=== PATIENT | male | born 1935 | race Caucasian/White ===

== ENCOUNTER 2018-12-26 11:45 | Observation (INO) | payer MEDICARE, OTHER, SELFPAY ==
[2018-12-10 08:43] VITALS: BMI 28.7
[2018-12-26] VITALS (10 sets, daily range): BP systolic 105–142; BP diastolic 54–68; PULSE 55–68; RESP 12–22; TEMP 36.6–36.9; O2SAT 93–98; BMI 29.1; BMI 29.0
--- NOTE | 2018-12-26 12:05 | RAD_ITS ---
STUDY: X-RAY CHEST REASON FOR EXAM: Male, 83 years old. Chest pain. TECHNIQUE: Single AP portable view of the chest. COMPARISON: 06/02/2015. FINDINGS: There again is mild stranding consistent with scarring in the right lower lung. No new infiltrate is seen. There is no demonstrated pleural abnormality. There is borderline cardiomegaly. Normal mediastinum and ang. Normal visualized pulmonary arteries. There is atherosclerotic tortuosity of the aortic arch and descending thoracic aorta. There are diffuse degenerative changes of the visualized thoracic spine. There is degenerative osteoarthritis of the bilateral shoulders. There is no demonstrated abnormality of the visualized soft tissue structures of the upper abdomen. RAD/Chest 1 View (Portable) IMPRESSION: Mild scarring in the right lower lung. No active pulmonary disease. Electronically Signed: Ac Ortiz MD at 12:40 EDT Tel , Service support ,
--- NOTE | 2018-12-26 12:09 | EKG12_ITS ---
Test Reason : CP Blood Pressure : / mmHG Vent. Rate : 066 BPM Atrial Rate : 066 BPM P-R Int : 202 ms QRS Dur : 134 ms QT Int : 426 ms P-R-T Axes : 037 -28 028 degrees QTc Int : 446 ms Normal sinus rhythm Right bundle branch block Inferior infarct (cited on or before 21-AUG-2013), age undetermined Abnormal ECG Confirmed by BART JUNE, FILI ([id number]), editorial specialist MORGAN VELÁSQUEZ ([id number]) on 12/29/2018 1:19:01 PM Referred By: Silvana Godoy Confirmed By:FILI ARRIAGA MD
[2018-12-26 12:17] LABS: Absolute Lymphocyte Count 10.46 X10^3/uL (0.83-4.51); Absolute Neutrophil Count 4.5 X10^3/uL (2.0-7.7); Basophil# 0.08 X10^3/uL; Basophil% 0.5 % (0-1); Eosinophil# 0.31 X10^3/uL; Eosinophils% 1.9 % (0-5); Hematocrit 47.4 % (40-54); Hemoglobin 15.9 g/dL (13.0-16.5); Lymphocyte # 10.46 X10^3/ul (4.0); Lymphocyte % 65.6 % (19-41); Mean Corp Hgb Conc 33.5 g/dL (32-36); Mean Corpuscular Hgb 30.9 pg (27.0-32.0); Mean Platelet Vol. 8.9 fl (6.2-12.0); Monocyte% 3.8 % (0-10); NRBC Flagged by Analyzer 0 % (0-5); Neutrophil # 4.45 X10^3/uL (2.7-7.7); Neutrophil % 27.9 % (47-70); POSITIVE DIFFERENTIAL YES; POSITIVE MORPHOLOGY YES; Platelet Count 166 K/mm3 (150-450); RBC Distribution Width CV 13.6 % (11.6-14.6); RBC Distribution Width SD 46.2 fl (35.1-43.9); Red Blood Count 5.15 M/mm3 (4.6-6.2)
[2018-12-26 12:19] LABS: Differential Indicated SCAN CRITERIA MET
[2018-12-26] MEDS: Aspirin 81 MG TAB.CHEW 324 MG PO (12:29)
[2018-12-26 12:30] LABS: Anion Gap 5 (5-15); BUN 15 mg/dL (7-18); BUN/Creat Ratio 12.2 RATIO (10-20); Calcium,Total 8.9 mg/dL (8.5-10.1); Chloride 105 mmol/L (98-107); Creatinine, Serum 1.23 mg/dL (0.70-1.30); EST Glomerular Filtration Rate 60 mL/min (>60); Est Glom Filt Rate - Afr Amer 72 mL/min (>60); Estimated Creatinine Clearance 49.95 ml/min; Glucose 170 mg/dL (74-106); Potassium 3.7 mmol/L (3.5-5.1); Sodium Level 141 mmol/L (136-145)
[2018-12-26 12:36] LABS: Differential Comment SCANNED; Reactive Lymphocyte 2+
--- NOTE | 2018-12-26 12:54 | CT_ITS ---
STUDY: CTA CHEST REASON FOR EXAM: Male, 83 years old. Chest pain, shortness of breath and hypertension. RADIATION DOSAGE (If Supplied By Facility): CTDIvol = ( 11.53 ) mGy, DLP = ( 486.53 ) mGycm TECHNIQUE: The examination was performed with the intravenous administration of 100mL IV Isovue 370. Post-processing of the angiographic images was performed, with multiplanar reformation and 3D reconstruction. Individualized dose optimization techniques were used for this CT. COMPARISON: None. FINDINGS: Normal enhancement of the main pulmonary artery and right and left pulmonary arteries. Normal enhancement of the bilateral peripheral pulmonary arteries. There is no demonstrated pulmonary embolism. There is atherosclerotic tortuosity of the aortic arch and descending thoracic aorta. There is suboptimal enhancement of the thoracic aorta. There is no definite dissection. The heart is borderline in size. There is no evidence of pericardial effusion. There may be coronary calcifications. Normal mediastinum. Normal hilar regions. Normal visualized trachea and bronchi. The lungs are well expanded. There is mild hazy groundglass opacities/infiltrates particularly in the upper lobes. There are atelectatic changes in both lower lobes and right middle lobe. No focal infiltrate is seen. There are no pleural effusions. Normal chest wall structures. Normal osseous structures. There is a striations in the vertebral body of T5 likely due to hemangioma. The visualized portions of the upper abdomen demonstrate mild splenomegaly. CT/CTA Chest W/WO Contrast IMPRESSION: 1. No evidence of pulmonary embolism. 2. Atelectatic changes in both lower lungs. 3. Questionable mild hazy groundglass opacity/early infiltrates which may reflect early mild pulmonary edema. 4. No focal infiltrate is seen. 5. Mild splenomegaly. 6. Probable hemangioma at T5 vertebra. Electronically Signed: Ac Ortiz MD at 14:42 EDT Tel , Service support ,
--- NOTE | 2018-12-26 12:56 | ED.DCSUM_ITS ---
- ER Visit Summary Date of Service: 12/26/18 Chief Complaint: Chest pain History of Present Illness: The patient is a [address] Mckeon for he and the [facility] in [place]. He reports that approximately 2 hours ago he had the onset of a substernal chest pain at while at rest. It is an aching pain that was 8 out of 10 at worst and 6 out of 10 currently. Is worsened by nothing including exertion or breathing. Also relieved by nothing. He took nitro without relief. Does report that is associated with shortness of breath and burping. He denies any nausea, vomiting, or diaphoresis. Patient does have history of coronary artery disease. He has 3 stents. His last was placed in 2010. He is unsure if he has had a stress test since then. He denies any chest pain with exertion over the course the past month. However, he does report these been much more fatigued with exertion over the past 2 weeks. Physical Examination: Vitals: Stable. Afebrile. General: Well-nourished and well-developed. Head: Normocephalic atraumatic. Neck: Supple, no lymphadenopathy. No JVD. Nontender. Cardiovascular: Regular rate and rhythm. No murmurs. Respiratory: No respiratory distress. Clear to auscultation bilaterally. Abdominal: Soft, nontender, nondistended, normal bowel sounds. No guarding, rebound, or peritoneal signs. Back: Nontender. Extremities: Nontender, no edema. Skin: Normal color, no rash. Neurologic: Alert and oriented ?3. Cranial nerves II through XII are intact. Normal strength and sensation. Psych: Normal affect. Test Results: EKG is sinus at 66 with right bundle branch block. This is a new finding since his last EKG June 022015. Troponin is negative. Chem-7 shows a glucose of 170. CBC shows a white count of 16.0 with 20 segmented neutrophils and 66 lymphocytes. Clinical Impression(s) from Imaging Studies Chest X-Ray 12/26/18 12:05 IMPRESSION: Mild scarring in the right lower lung. No active pulmonary disease. Electronically Signed: Ac Ortiz MD at 12:40 EDT Tel , Service support , Chest CTA 12/26/18 12:54 IMPRESSION: 1. No evidence of pulmonary embolism. 2. Atelectatic changes in both lower lungs. 3. Questionable mild hazy groundglass opacity/early infiltrates which may reflect early mild pulmonary edema. 4. No focal infiltrate is seen. 5. Mild splenomegaly. 6. Probable hemangioma at T5 vertebra. Electronically Signed: Ac Ortiz MD at 14:42 EDT Tel , Service support , Emergency Department Course and Treatment: Patient was treated with aspirin p.o. He is resting comfortably. He denies any chest pain at this time. Treatment Plan: The patient was discussed with Dr. Godoy. He will be admitted to the hospital for further evaluation and treatment. Disposition: Admitted in improved condition. Impression: 1. Chest pain. 2. JUDIT score 5. 3. Mantle cell lymphoma. This note was generated with [employer] dictation software. It may contain incorrect words, spelling, and punctuation that were not noted in review of the chart prior to signing ED Disposition - Plan for ED Patient: Disposition: Acute Care Hospital [facility]
[2018-12-26] MEDS: MethylPREDNISolone 125 MG/2 ML Vial 60 MG IV (13:06)
[2018-12-26] MEDS: DiphenhydrAMINE 50 MG/ML Syringe IV (13:06)
[2018-12-26 13:10] LABS: D-Dimer Quantitative (DVT/PE) < 0.27 FEU/ug/m (0.27-0.49)
--- NOTE | 2018-12-26 15:53 | PCM.HP.STD ---
Problem List (1) Hyperlipidemia Status: Chronic (2) Atherosclerosis of coronary artery of [place] heart without angina pectoris Status: Chronic Comment: PCI-CRISS-OM1 05/2000; UHC-EOA-Ymhfww LAD w/ 2.5 x 18 mm and Mid-LAD w/ 2.5 x 30 mm [place] Stent 07/03/2010 (3) History of coronary artery stent placement Status: Resolved Comment: PCI-CRISS-OM1 05/2000; VFZ-FPL-Ejhhhm LAD w/ 2.5 x 18 mm and Mid-LAD w/ 2.5 x 30 mm [place] Stent 07/03/2010 (4) Essential (primary) hypertension Status: Chronic History of Present Illness Date of Admission: 12/26/18 Chief Complaint: Chest pain. The patient is a 83 year old M who presents to the emergency room due to chest pain. Patient states he was driving his car and developed sudden chest pain. He took a nitroglycerin without significant improvement in pain. Patient reports his symptoms feel similar to chest pain with prior stents. He denies pain radiation, diaphoresis, dizziness/lightheadedness or shortness of breath. Patient states he has had some belching today which he reports he also had before prior stents. Patient does note that over the past several weeks he has had increased shortness of breath with exertion. He states he has nitro at home and has not taken nitro in at least 10 years prior to today. Patient follows with Dr. Hess. He has a history of CAD with history of stents X3, hypertension, hyperlipidemia, Mantle cell lymphoma, GERD, BPH, asthma. Past Medical History Past Medical History (Chronic Problems): Chronic Problems (Last Reviewed 12/10/18 @ 10:00 by Raheem Hess MD) Hyperlipidemia (Chronic) Atherosclerosis of coronary artery of [place] heart without angina pectoris (Chronic) PCI-CRISS-OM1 05/2000; FFE-RTY-Oemhgr LAD w/ 2.5 x 18 mm and Mid-LAD w/ 2.5 x 30 mm [place] Stent 07/03/2010 Essential (primary) hypertension (Chronic) Medical History: Medical History (Last Reviewed 12/10/18 @ 10:00 by Raheem Hess MD) Hyperlipidemia (Chronic) E78.5 Atherosclerosis of coronary artery of [place] heart without angina pectoris (Chronic) I25.10 PCI-CRISS-OM1 05/2000; JWG-EPL-Oliypk LAD w/ 2.5 x 18 mm and Mid-LAD w/ 2.5 x 30 mm [place] Stent 07/03/2010 Essential (primary) hypertension (Chronic) I10 Asthma J45.909 BPH (benign prostatic hyperplasia) N40.0 GERD (gastroesophageal reflux disease) K21.9 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 Acute respiratory failure (Resolved) J96.00 Aspiration into lower respiratory tract (Resolved) T17.800A Allergies IV DYE Allergy (Uncoded 12/26/18 11:46) Hives Home Medications: Ambulatory Orders Medication Instructions Recorded Aspirin [Aspirin, Baby] 81 mg PO DAILY@0800 02/15/13 Fluticasone/Salmeterol [Advair 1 puff INHALATION BID 02/15/13 250/50 Mcg Diskus] Ramipril [Altace] 2.5 mg PO DAILY 02/15/13 Tamsulosin HCl [Flomax] 0.4 mg PO QHS 02/15/13 Multivit-Min/FA/Lycopen/Lutein 1 ea PO DAILY 06/02/15 [Centrum Silver Tablet] hydrochlorothiazide 25 mg tablet 25 mg PO QAM 12/10/17 atorvastatin 80 mg tablet 40 mg PO QHS tab 12/10/18 nitroglycerin 0.4 mg sublingual 0.4 mg SUBLINGUAL Q5-15M 12/10/18 tablet omeprazole 20 mg capsule,delayed 20 mg PO DAILY 12/10/18 release Surgical History: Surgical History (Last Reviewed 12/10/18 @ 10:00 by Raheem Hess MD) History of coronary artery stent placement (Resolved) Onset Date: 07/03/10 Z95.5 PCI-CRISS-OM1 05/2000; FYV-YST-Lojwao LAD w/ 2.5 x 18 mm and Mid-LAD w/ 2.5 x 30 mm [place] Stent 07/03/2010 History of cholecystectomy Z90.49 History of hemorrhoidectomy Z98.890 History of left heart catheterization Onset Date: 07/08/13 Z98.890 History of tonsillectomy Z90.89 Surgical History: angioplasty - three stents, - - Tonsillectomy, cholecystectomy, hemorrhoidectomy Psychiatric History: No pertinent psych hx Lives: Spouse/ Significant Other Smoking Status: Former smoker Alcohol: None Drugs: None - *Family History Maternal Family History: Family History (Last Reviewed 12/26/18 @ 15:58 by MARIPOSA Tijerina) Brother Myocardial infarction Sister Myocardial infarction Mother Heart disease Paternal Family History: Family History (Last Reviewed 12/26/18 @ 15:58 by MARIPOSA Tijerina) Brother Myocardial infarction Sister Myocardial infarction Mother Heart disease Review of Systems Constitutional: Denies: Chills, Fever, Weight Change HEENT: Denies: Head Aches, Sinus Congestion, Sinus Drainage Cardiovascular: Reports: Chest Pain. Denies: Edema, Light Headedness, Palpitations, Syncope Respiratory: Denies: Cough, Shortness of breath at rest, Sputum production Gastrointestinal: Denies: Abdominal Pain, Nausea, Vomiting Genitourinary: Denies: Dysuria Musculoskeletal: Denies: Joint Pain, Joint Tenderness Skin: Denies: Rash, Wounds Neurological: Denies: Numbness, Tingling, Focal weakness Psychiatric: Denies: Anxiety, Depression, Homicidal Ideations, Suicidal Ideations Hematologic/ Lymphatic: Denies: Easy Bruising, Easy Bleeding VTE Information - Inpt Only VTE Present on Admission: No VTE Mechan Device Prophylaxis: None VTE Pharm Prophylaxis ordered?: Yes - Physical Exam General: Alert, Oriented x3, Cooperative HEENT: Atraumatic, PERRLA, EOMI, Normocephalic Neck: Supple, No JVD, Negative Carotid Bruits Lungs: Clear to auscultation, Diminished Cardiovascular: Regular rate, Regular Rhythm, Normal S1, Normal S2, No murmurs Abdomen: Bowel Sounds Present, Soft, Non Tender, Non-Distended Extremities: No clubbing, No cyanosis, No edema, Capillary Refill Less than 3 Seconds Skin: No rashes, No breakdown Musculoskeletal: No Tenderness to Palpation of Joints or Extremities Neurological: Cranial nerves II-XII grossly intact, Neuro grossly intact Psych/Mental Status: Normal Affect, Appropriate Vital Signs Temp Pulse Resp BP Pulse Ox 98.5 F 55 L 22 H 116/54 L 98 12/26/18 11:46 12/26/18 14:19 12/26/18 14:19 12/26/18 14:19 12/26/18 14:19 Oxygen Delivery Method Room Air Weight: 214 lb 15.211 oz Body Mass Index (BMI) 29.1 Laboratory Tests Past 24 Hrs 12/26/18 12/26/18 12/26/18 11:45 11:45 11:45 WBC 16.0 H RBC 5.15 Hgb 15.9 Hct 47.4 MCV 92.0 MCH 30.9 MCHC 33.5 RDW Std Deviation 46.2 H RDW Coeff of Jack 13.6 Plt Count 166 MPV 8.9 Immature Gran % (Auto) 0.300 Neut % (Auto) 27.9 L Lymph % (Auto) 65.6 H [place] % (Auto) 3.8 Eos % (Auto) 1.9 Baso % (Auto) 0.5 Absolute Neuts (auto) 4.5 Absolute Lymphs (auto) 10.46 H Nucleated RBC % 0 Differential Comment SCANNED Reactive Lymphocytes 2+ D-Dimer Quant (PE/DVT) < 0.27 L Sodium 141 Potassium 3.7 Chloride 105 Carbon Dioxide 31.0 Anion Gap 5 BUN 15 Creatinine 1.23 Estim Creat Clear Calc 49.95 Est GFR (MDRD) Af Amer 72 Est GFR (MDRD) Non-Af 60 BUN/Creatinine Ratio 12.2 Glucose 170 H Calcium 8.9 Troponin I < 0.015 Assessment/Plan All Active Problems (Last Reviewed 12/10/18 @ 10:00 by Raheem Hess MD) History of coronary artery stent placement (Resolved 07/03/10) Acute respiratory failure (Resolved) Aspiration into lower respiratory tract (Resolved) 1. Chest pain with history of CAD status post stents-rule out ACS. EKG without acute ischemia, right bundle branch block. Trend enzymes. Repeat EKG in a.m. Continue aspirin, statin. Stress test on Friday. CTA without evidence of PE. 2. Abnormal CT of chest-CT of chest shows questionable mild hazy groundglass opacity. Recommend outpatient follow-up/repeat imaging. 3. Hypertension-stable, continue home hydrochlorothiazide, ramipril regimen. 4. Hyperlipidemia-continue statin. 5. Mantel cell lymphoma-continue outpatient follow-up. 6. GERD-continue omeprazole regimen. 7. BPH-continue Flomax regimen. 8. Asthma-no acute exacerbation. As needed albuterol aerosol. 9. Elevated glucose-possible stress response. No history of type 2 diabetes mellitus. Check hemoglobin A1c. DVT prophylaxis-Lovenox subcu This patient was seen by MARIPOSA Tijerina under the supervision of Dr. Godoy.
--- NOTE | 2018-12-26 16:33 | EKG12_ITS ---
Test Reason : CP Blood Pressure : / mmHG Vent. Rate : 056 BPM Atrial Rate : 056 BPM P-R Int : 206 ms QRS Dur : 124 ms QT Int : 430 ms P-R-T Axes : 051 -20 049 degrees QTc Int : 414 ms Sinus bradycardia Right bundle branch block Inferior infarct , age undetermined Abnormal ECG When compared with ECG of 26-DEC-2018 11:50, MANUAL COMPARISON REQUIRED, DATA IS UNCONFIRMED Confirmed by JESSICA OCONNOR ([id number]), business editor DANIS ELIZABETH ([id number]) on 01/04/2019 2:38:49 PM Referred By: Silvana Godoy Confirmed By:JESSICA OCONNOR
[2018-12-26 17:06] LABS: Hematocrit 48.3 % (40-54); Hemoglobin 16.3 g/dL (13.0-16.5); Mean Corp Hgb Conc 33.7 g/dL (32-36); Mean Corpuscular Hgb 30.8 pg (27.0-32.0); Mean Corpuscular Volume 91.1 fL (80-94); Mean Platelet Vol. 8.9 fl (6.2-12.0); Platelet Count 157 K/mm3 (150-450); RBC Distribution Width CV 13.6 % (11.6-14.6); RBC Distribution Width SD 45.6 fl (35.1-43.9); White Blood Count 13.5 K/mm3 (4.4-11.0)
[2018-12-26 17:18] LABS: BNP,B-Type NATRIURETIC PEPTIDE 12.3 pg/mL (0-100)
[2018-12-26 17:50] LABS: Hemoglobin A1c 5.8 % (4.2-6.3)
[2018-12-26] MEDS: Ipratropium/Albuterol Sulfate 3 ML AMPUL.NEB INHALATION (19:07)
[2018-12-26] MEDS: Atorvastatin Calcium 40 MG Tablet PO (22:04)
[2018-12-26] MEDS: Tamsulosin HCl 0.4 MG Capsule PO (22:04)
[2018-12-27] VITALS (14 sets, daily range): BP systolic 100–126; BP diastolic 50–62; PULSE 60–93; RESP 16–20; TEMP 36.6–37; O2SAT 90–94
--- NOTE | 2018-12-27 05:55 | EKG12_ITS ---
Test Reason : AM EKG Blood Pressure : / mmHG Vent. Rate : 063 BPM Atrial Rate : 063 BPM P-R Int : 202 ms QRS Dur : 130 ms QT Int : 440 ms P-R-T Axes : 050 -24 028 degrees QTc Int : 450 ms Normal sinus rhythm Right bundle branch block Inferior infarct , age undetermined Abnormal ECG When compared with ECG of 26-DEC-2018 15:52, MANUAL COMPARISON REQUIRED, DATA IS UNCONFIRMED Confirmed by JESSICA OCONNOR ([id number]), news editor DANIS ELIZABETH ([id number]) on 01/04/2019 2:39:41 PM Referred By: Silvana Godoy Confirmed By:JESSICA OCONNOR
[2018-12-27 06:12] LABS: Absolute Lymphocyte Count 10.82 X10^3/uL (0.83-4.51); Absolute Neutrophil Count 8.9 X10^3/uL (2.0-7.7); Basophil# 0.04 X10^3/uL; Basophil% 0.2 % (0-1); Eosinophil# 0.01 X10^3/uL; Hematocrit 44.4 % (40-54); Hemoglobin 15.3 g/dL (13.0-16.5); Lymphocyte # 10.82 X10^3/ul (4.0); Mean Corp Hgb Conc 34.5 g/dL (32-36); Mean Corpuscular Hgb 31.1 pg (27.0-32.0); Mean Corpuscular Volume 90.2 fL (80-94); Monocyte# 2.26 X10^3/uL; Monocyte% 10.2 % (0-10); NRBC Flagged by Analyzer 0 % (0-5); Neutrophil # 8.88 X10^3/uL (2.7-7.7); Neutrophil % 40.2 % (47-70); POSITIVE DIFFERENTIAL YES; POSITIVE MORPHOLOGY YES; Platelet Count 165 K/mm3 (150-450); RBC Distribution Width CV 13.4 % (11.6-14.6); Red Blood Count 4.92 M/mm3 (4.6-6.2); White Blood Count 22.1 K/mm3 (4.4-11.0)
[2018-12-27 06:25] LABS: Differential Indicated SCAN CRITERIA MET
[2018-12-27 06:30] LABS: Anion Gap 8 (5-15); BUN 21 mg/dL (7-18); BUN/Creat Ratio 17.6 RATIO (10-20); Calcium,Total 8.8 mg/dL (8.5-10.1); Chloride 106 mmol/L (98-107); Cholesterol 102 mg/dL (200); Creatinine, Serum 1.19 mg/dL (0.70-1.30); EST Glomerular Filtration Rate 62 mL/min (>60); Est Glom Filt Rate - Afr Amer 75 mL/min (>60); Estimated Creatinine Clearance 50.09 ml/min; Glucose 117 mg/dL (74-106); High Density Lipoprotein 38 mg/dL; Magnesium 2.1 mg/dL (1.6-2.6); Sodium Level 140 mmol/L (136-145); Triglycerides 85 mg/dL; Very Low Density Lipoprotein 17 mg/dL (5-40)
[2018-12-27] MEDS: Ipratropium/Albuterol Sulfate 3 ML AMPUL.NEB INHALATION ×3 (06:47→19:09)
[2018-12-27 06:59] LABS: Differential Comment SCANNED; Reactive Lymphocyte 3+
[2018-12-27] MEDS: hydroCHLOROthiazide 25 MG Tablet PO (08:07)
[2018-12-27] MEDS: Aspirin 81 MG TAB.CHEW PO (08:07)
[2018-12-27] MEDS: Ramipril 2.5 MG Capsule PO (08:07)
[2018-12-27] MEDS: Pantoprazole Sodium 20 MG Tablet PO ×2 (08:07)
[2018-12-27] MEDS: Enoxaparin 40 MG/0.4 ML Syringe SC (08:08)
--- NOTE | 2018-12-27 09:20 | PN_ITS ---
<Vilma Borden - Last Filed: 12/27/18 09:30> Patient Problems: Active and Suspected Problems (Last Reviewed 12/10/18 @ 10:00 by Raheem Hess MD) Chest pain (Acute) Subjective: Patient seen and examined. Denies chest pain overnight. No current complaints. - Physical Exam General: Alert, Oriented x3, Cooperative HEENT: Atraumatic, PERRLA, EOMI, Normocephalic Neck: Supple, No JVD, Negative Carotid Bruits Lungs: Clear to auscultation, Diminished Cardiovascular: Regular rate, Regular Rhythm, Normal S1, Normal S2, No murmurs Abdomen: Bowel Sounds Present, Soft, Non Tender, Non-Distended Extremities: No clubbing, No cyanosis, No edema, Capillary Refill Less than 3 Seconds Skin: No rashes, No breakdown Musculoskeletal: No Tenderness to Palpation of Joints or Extremities Neurological: Cranial nerves II-XII grossly intact, Neuro grossly intact Psych/Mental Status: Normal Affect, Appropriate Vital Signs Temp Pulse Resp BP Pulse Ox 98.2 F 93 16 126/62 H 92 12/27/18 08:05 12/27/18 08:05 12/27/18 08:05 12/27/18 08:05 12/27/18 08:05 Oxygen Delivery Method Room Air Weight: 208 lb 8.917 oz Body Mass Index (BMI) 29.0 Intake and Output for Last 24 Hours 12/25/18 12/26/18 12/27/18 23:59 23:59 23:59 Intake Total 360 / 360 Balance 360 / 360 Laboratory Tests Past 24 Hrs 12/26/18 12/26/18 12/26/18 11:45 11:45 11:45 WBC 16.0 H RBC 5.15 Hgb 15.9 Hct 47.4 MCV 92.0 MCH 30.9 MCHC 33.5 RDW Std Deviation 46.2 H RDW Coeff of Jack 13.6 Plt Count 166 MPV 8.9 Immature Gran % (Auto) 0.300 Neut % (Auto) 27.9 L Lymph % (Auto) 65.6 H [place] % (Auto) 3.8 Eos % (Auto) 1.9 Baso % (Auto) 0.5 Absolute Neuts (auto) 4.5 Absolute Lymphs (auto) 10.46 H Nucleated RBC % 0 Differential Comment SCANNED Diff Path Review Reactive Lymphocytes 2+ D-Dimer Quant (PE/DVT) < 0.27 L Sodium 141 Potassium 3.7 Chloride 105 Carbon Dioxide 31.0 Anion Gap 5 BUN 15 Creatinine 1.23 Estim Creat Clear Calc 49.95 Est GFR (MDRD) Af Amer 72 Est GFR (MDRD) Non-Af 60 BUN/Creatinine Ratio 12.2 Glucose 170 H Hemoglobin A1c Calcium 8.9 Magnesium Troponin I < 0.015 B-Natriuretic Peptide Triglycerides Cholesterol LDL Cholesterol VLDL Cholesterol HDL Cholesterol 12/26/18 12/26/18 12/26/18 11:45 16:54 16:54 WBC 13.5 H RBC 5.30 Hgb 16.3 Hct 48.3 MCV 91.1 MCH 30.8 MCHC 33.7 RDW Std Deviation 45.6 H RDW Coeff of Jack 13.6 Plt Count 157 MPV 8.9 Immature Gran % (Auto) Neut % (Auto) Lymph % (Auto) [place] % (Auto) Eos % (Auto) Baso % (Auto) Absolute Neuts (auto) Absolute Lymphs (auto) Nucleated RBC % Differential Comment Diff Path Review Reactive Lymphocytes D-Dimer Quant (PE/DVT) Sodium Potassium Chloride Carbon Dioxide Anion Gap BUN Creatinine Estim Creat Clear Calc Est GFR (MDRD) Af Amer Est GFR (MDRD) Non-Af BUN/Creatinine Ratio Glucose Hemoglobin A1c 5.8 Calcium Magnesium Troponin I B-Natriuretic Peptide 12.3 Triglycerides Cholesterol LDL Cholesterol VLDL Cholesterol HDL Cholesterol 12/26/18 12/26/18 12/27/18 16:54 19:53 05:49 WBC RBC Hgb Hct MCV MCH MCHC RDW Std Deviation RDW Coeff of Jack Plt Count MPV Immature Gran % (Auto) Neut % (Auto) Lymph % (Auto) [place] % (Auto) Eos % (Auto) Baso % (Auto) Absolute Neuts (auto) Absolute Lymphs (auto) Nucleated RBC % Differential Comment Diff Path Review Reactive Lymphocytes D-Dimer Quant (PE/DVT) Sodium 140 Potassium 4.0 Chloride 106 Carbon Dioxide 26.0 Anion Gap 8 BUN 21 H Creatinine 1.19 Estim Creat Clear Calc 50.09 Est GFR (MDRD) Af Amer 75 Est GFR (MDRD) Non-Af 62 BUN/Creatinine Ratio 17.6 Glucose 117 H Hemoglobin A1c Calcium 8.8 Magnesium 2.1 Troponin I < 0.015 < 0.015 B-Natriuretic Peptide Triglycerides 85 Cholesterol 102 LDL Cholesterol 47 VLDL Cholesterol 17 HDL Cholesterol 38 L 12/27/18 05:49 WBC 22.1 H RBC 4.92 Hgb 15.3 Hct 44.4 MCV 90.2 MCH 31.1 MCHC 34.5 RDW Std Deviation 44.0 H RDW Coeff of Jack 13.4 Plt Count 165 MPV 9.0 Immature Gran % (Auto) 0.400 Neut % (Auto) 40.2 L Lymph % (Auto) 49.0 H [place] % (Auto) 10.2 H Eos % (Auto) 0.0 Baso % (Auto) 0.2 Absolute Neuts (auto) 8.9 H Absolute Lymphs (auto) 10.82 H Nucleated RBC % 0 Differential Comment SCANNED Diff Path Review May foll Reactive Lymphocytes 3+ D-Dimer Quant (PE/DVT) Sodium Potassium Chloride Carbon Dioxide Anion Gap BUN Creatinine Estim Creat Clear Calc Est GFR (MDRD) Af Amer Est GFR (MDRD) Non-Af BUN/Creatinine Ratio Glucose Hemoglobin A1c Calcium Magnesium Troponin I B-Natriuretic Peptide Triglycerides Cholesterol LDL Cholesterol VLDL Cholesterol HDL Cholesterol Medical Necessity - Tobacco Use Smoking Status: Former smoker Assessment/Plan All Active Problems (Last Reviewed 12/10/18 @ 10:00 by Raheem Hess MD) Chest pain (Acute) History of coronary artery stent placement (Resolved 07/03/10) Acute respiratory failure (Resolved) Aspiration into lower respiratory tract (Resolved) 1. Chest pain with history of CAD status post stents-rule out ACS. EKG without acute ischemia, right bundle branch block. Troponin negative. Continue aspirin, statin. CTA without evidence of PE. Plan for stress test in a.m. Echocardiogram ordered as well given recent dyspnea on exertion. BNP normal. 2. Abnormal CT of chest-CT of chest shows questionable mild hazy groundglass opacity. Recommend outpatient follow-up/repeat imaging. 3. Hypertension-stable, continue home hydrochlorothiazide, ramipril regimen. 4. Hyperlipidemia-continue statin. 5. Mantel cell lymphoma-continue outpatient follow-up. 6. GERD-continue omeprazole regimen. 7. BPH-continue Flomax regimen. 8. Asthma-no acute exacerbation. As needed albuterol aerosol. 9. Elevated glucose-suspect stress response. Hemoglobin A1c 5.8%. DVT prophylaxis-Lovenox subcu This patient was seen by Vilma Michi, CHEMICAL DEPENDENCY NURSE-C under the supervision of Dr. Khoury. <Isac Khoury - Last Filed: 12/27/18 09:48> - Physical Exam General: Alert, Cooperative HEENT: Atraumatic, Normocephalic Neck: No Nodes, Thyroid Normal Size and Texture Lungs: Clear to auscultation, Normal air movement, No rhonchi, No wheeze, No rales, Diminished Cardiovascular: Regular rate, Regular Rhythm, Normal S1, Normal S2, No murmurs Abdomen: Bowel Sounds Present, Soft, Non Tender, Non-Distended Extremities: No edema, No Calf Tenderness Skin: No rashes, No breakdown Psych/Mental Status: Normal Affect, Appropriate Vital Signs Temp Pulse Resp BP Pulse Ox 36.8 C 93 16 126/62 H 92 12/27/18 08:05 12/27/18 08:05 12/27/18 08:05 12/27/18 08:05 12/27/18 08:05 Oxygen Delivery Method Room Air Weight: 94.6 kg Body Mass Index (BMI) 29.0 Intake and Output for Last 24 Hours 12/25/18 12/26/18 12/27/18 23:59 23:59 23:59 Intake Total 360 / 360 Balance 360 / 360 Laboratory Tests Past 24 Hrs 12/26/18 12/26/18 12/26/18 11:45 11:45 11:45 WBC 16.0 H RBC 5.15 Hgb 15.9 Hct 47.4 MCV 92.0 MCH 30.9 MCHC 33.5 RDW Std Deviation 46.2 H RDW Coeff of Jack 13.6 Plt Count 166 MPV 8.9 Immature Gran % (Auto) 0.300 Neut % (Auto) 27.9 L Lymph % (Auto) 65.6 H [place] % (Auto) 3.8 Eos % (Auto) 1.9 Baso % (Auto) 0.5 Absolute Neuts (auto) 4.5 Absolute Lymphs (auto) 10.46 H Nucleated RBC % 0 Differential Comment SCANNED Diff Path Review Reactive Lymphocytes 2+ D-Dimer Quant (PE/DVT) < 0.27 L Sodium 141 Potassium 3.7 Chloride 105 Carbon Dioxide 31.0 Anion Gap 5 BUN 15 Creatinine 1.23 Estim Creat Clear Calc 49.95 Est GFR (MDRD) Af Amer 72 Est GFR (MDRD) Non-Af 60 BUN/Creatinine Ratio 12.2 Glucose 170 H Hemoglobin A1c Calcium 8.9 Magnesium Troponin I < 0.015 B-Natriuretic Peptide Triglycerides Cholesterol LDL Cholesterol VLDL Cholesterol HDL Cholesterol 12/26/18 12/26/18 12/26/18 11:45 16:54 16:54 WBC 13.5 H RBC 5.30 Hgb 16.3 Hct 48.3 MCV 91.1 MCH 30.8 MCHC 33.7 RDW Std Deviation 45.6 H RDW Coeff of Jack 13.6 Plt Count 157 MPV 8.9 Immature Gran % (Auto) Neut % (Auto) Lymph % (Auto) [place] % (Auto) Eos % (Auto) Baso % (Auto) Absolute Neuts (auto) Absolute Lymphs (auto) Nucleated RBC % Differential Comment Diff Path Review Reactive Lymphocytes D-Dimer Quant (PE/DVT) Sodium Potassium Chloride Carbon Dioxide Anion Gap BUN Creatinine Estim Creat Clear Calc Est GFR (MDRD) Af Amer Est GFR (MDRD) Non-Af BUN/Creatinine Ratio Glucose Hemoglobin A1c 5.8 Calcium Magnesium Troponin I B-Natriuretic Peptide 12.3 Triglycerides Cholesterol LDL Cholesterol VLDL Cholesterol HDL Cholesterol 12/26/18 12/26/18 12/27/18 16:54 19:53 05:49 WBC RBC Hgb Hct MCV MCH MCHC RDW Std Deviation RDW Coeff of Jack Plt Count MPV Immature Gran % (Auto) Neut % (Auto) Lymph % (Auto) [place] % (Auto) Eos % (Auto) Baso % (Auto) Absolute Neuts (auto) Absolute Lymphs (auto) Nucleated RBC % Differential Comment Diff Path Review Reactive Lymphocytes D-Dimer Quant (PE/DVT) Sodium 140 Potassium 4.0 Chloride 106 Carbon Dioxide 26.0 Anion Gap 8 BUN 21 H Creatinine 1.19 Estim Creat Clear Calc 50.09 Est GFR (MDRD) Af Amer 75 Est GFR (MDRD) Non-Af 62 BUN/Creatinine Ratio 17.6 Glucose 117 H Hemoglobin A1c Calcium 8.8 Magnesium 2.1 Troponin I < 0.015 < 0.015 B-Natriuretic Peptide Triglycerides 85 Cholesterol 102 LDL Cholesterol 47 VLDL Cholesterol 17 HDL Cholesterol 38 L 12/27/18 05:49 WBC 22.1 H RBC 4.92 Hgb 15.3 Hct 44.4 MCV 90.2 MCH 31.1 MCHC 34.5 RDW Std Deviation 44.0 H RDW Coeff of Jack 13.4 Plt Count 165 MPV 9.0 Immature Gran % (Auto) 0.400 Neut % (Auto) 40.2 L Lymph % (Auto) 49.0 H [place] % (Auto) 10.2 H Eos % (Auto) 0.0 Baso % (Auto) 0.2 Absolute Neuts (auto) 8.9 H Absolute Lymphs (auto) 10.82 H Nucleated RBC % 0 Differential Comment SCANNED Diff Path Review May foll Reactive Lymphocytes 3+ D-Dimer Quant (PE/DVT) Sodium Potassium Chloride Carbon Dioxide Anion Gap BUN Creatinine Estim Creat Clear Calc Est GFR (MDRD) Af Amer Est GFR (MDRD) Non-Af BUN/Creatinine Ratio Glucose Hemoglobin A1c Calcium Magnesium Troponin I B-Natriuretic Peptide Triglycerides Cholesterol LDL Cholesterol VLDL Cholesterol HDL Cholesterol Assessment/Plan Patient seen and examined independently. Data reviewed. I agree with the above note by the nurse practitioner. 1. Chest pain * Currently resolved. * Plan is for a stress test on the 30 06. Abnormal CAT scan: Patient had some groundglass opacities. Patient has no symptoms at this time and exam is unremarkable. Echocardiogram ordered to evaluate for any development of heart failure. Code Visit OBSV E&M: 42849 Subsequent observation care L2
[2018-12-27] MEDS: 0.9% NaCl Peripheral Flush Adult/Peds IV ×2 (09:57→23:21)
[2018-12-27] MEDS: Tamsulosin HCl 0.4 MG Capsule PO (21:50)
[2018-12-27] MEDS: Atorvastatin Calcium 40 MG Tablet PO (21:50)
[2018-12-27] MEDS: 0.9% Normal Saline 1,000 ML 100 ML IV (23:21)
[2018-12-28 02:52] VITALS: PULSE 79
[2018-12-28 04:40] VITALS: BP 122/62; PULSE 81; RESP 16; TEMP 37.1; O2SAT 96
[2018-12-28] MEDS: Aspirin 81 MG TAB.CHEW PO (04:42)
[2018-12-28] MEDS: Ramipril 2.5 MG Capsule PO (04:42)
[2018-12-28 06:56] VITALS: PULSE 78; RESP 16; O2SAT 90
[2018-12-28] MEDS: Ipratropium/Albuterol Sulfate 3 ML AMPUL.NEB INHALATION (06:56)
[2018-12-28 07:30] VITALS: PULSE 74
[2018-12-28] MEDS: 0.9% Normal Saline 1,000 ML 100 ML IV (08:37)
[2018-12-28 09:09] VITALS: PULSE 159
--- NOTE | 2018-12-28 09:31 | DCINST_ITS ---
- Discharge Diagnoses Current Active Problems: Current Active and Chronic Problems (Last Reviewed 12/10/18 @ 10:00 by Raheem Hess MD) Chest pain (Acute) You will use the following diet at home:: Cardiac Discharge Activity: Return to Normal Activity Call your doctor if you observe: Shortness of breath, Dizziness, Fainting spells, Chest pain Allergies/Adverse Reactions: Allergies IV DYE Allergy (Uncoded 12/26/18 11:46) Hives Medications to take at Discharge Aspirin [Aspirin, Baby] 81 mg PO DAILY@0800 02/15/13 Fluticasone/Salmeterol [Advair 250/50 Mcg Diskus] 1 puff INHALATION BID 02/15/13 Ramipril [Altace] 2.5 mg PO DAILY 02/15/13 Tamsulosin HCl [Flomax] 0.4 mg PO QHS 02/15/13 Multivit-Min/FA/Lycopen/Lutein [Centrum Silver Tablet] 1 ea PO DAILY 06/02/15 hydrochlorothiazide 25 mg tablet 25 mg PO QAM 12/10/17 atorvastatin 80 mg tablet 40 mg PO QHS tab 12/10/18 nitroglycerin 0.4 mg sublingual tablet 0.4 mg SUBLINGUAL Q5-15M 12/10/18 omeprazole 20 mg capsule,delayed release 20 mg PO DAILY 12/10/18 Primary Care Physician: [facility] [Primary Care Provider] - Please follow up with your Primary Care Physician in: 1 Week Test Results: Test results from this visit will be discussed in further detail at your follow- up appointment, if applicable. Please Follow Up With: Raheem Hess MD When: As scheduled Proposed Discharge Date: 12/28/18
--- NOTE | 2018-12-28 09:32 | DS.PCM_ITS ---
<Vilma Borden - Last Filed: 12/28/18 13:18> Discharge Date and Diagnosis - Problem List Patient Problems: Active and Suspected Problems (Last Reviewed 12/10/18 @ 10:00 by Raheem Hess MD) Chest pain (Acute) Date of Admission: 12/26/18 Date of Discharge: 12/28/18 - Primary Discharge Diagnosis Active and Suspected Problems (Last Reviewed 12/10/18 @ 10:00 by Raheem Hess MD) 1. Chest pain with history of CAD status post stents, ACS ruled out 2. Abnormal CT of chest-CT of chest shows questionable mild hazy groundglass opacity. 3. Hypertension 4. Hyperlipidemia 5. Mantel cell lymphoma 6. GERD 7. BPH 8. Asthma - Secondary Discharge Diagnosis Chronic Problems (Last Reviewed 12/10/18 @ 10:00 by Raheem Hess MD) Hyperlipidemia (Chronic) Atherosclerosis of coronary artery of [place] heart without angina pectoris (Chronic) PCI-CRISS-OM1 05/2000; DNA-EEL-Ezyglh LAD w/ 2.5 x 18 mm and Mid-LAD w/ 2.5 x 30 mm [place] Stent 07/03/2010 Essential (primary) hypertension (Chronic) Hospital Course and Treatment Imaging Results: Diagnostic Data Chest X-Ray 12/26/18 12:05 IMPRESSION: Mild scarring in the right lower lung. No active pulmonary disease. Electronically Signed: Ac Ortiz MD at 12:40 EDT Tel , Service support , Chest CTA 12/26/18 12:54 IMPRESSION: 1. No evidence of pulmonary embolism. 2. Atelectatic changes in both lower lungs. 3. Questionable mild hazy groundglass opacity/early infiltrates which may reflect early mild pulmonary edema. 4. No focal infiltrate is seen. 5. Mild splenomegaly. 6. Probable hemangioma at T5 vertebra. Electronically Signed: Ac Ortiz MD at 14:42 EDT Tel , Service support , Procedures: Stress test Summary of Care Provided: The patient is a 83 year old M admitted 12/26/2018 due to chest pain. 1. Chest pain with history of CAD status post stents-ACS ruled out. EKG without acute ischemia, right bundle branch block. Troponin negative. Patient underwent stress test which was negative for ischemia. Continue aspirin, statin. CTA without evidence of PE. Follow-up with primary care physician in 1 week. Follow-up with Dr. Hess, cardiology as scheduled. 2. Abnormal CT of chest-CT of chest shows questionable mild hazy groundglass opacity. Recommend outpatient follow-up/repeat imaging. 3. Hypertension-stable, continue home hydrochlorothiazide, ramipril regimen. 4. Hyperlipidemia-continue statin. 5. Mantel cell lymphoma-continue outpatient follow-up. 6. GERD-continue omeprazole regimen. 7. BPH-continue Flomax regimen. 8. Asthma-no acute exacerbation. 9. Elevated glucose-suspect stress response. Hemoglobin A1c 5.8%. General: Alert, Oriented x3, Cooperative HEENT: Atraumatic, PERRLA, EOMI, Normocephalic Neck: Supple, No JVD, Negative Carotid Bruits Lungs: Clear to auscultation, Diminished Cardiovascular: Regular rate, Regular Rhythm, Normal S1, Normal S2, No murmurs Abdomen: Bowel Sounds Present, Soft, Non Tender, Non-Distended Extremities: No clubbing, No cyanosis, No edema, Capillary Refill Less than 3 Seconds Skin: No rashes, No breakdown Musculoskeletal: No Tenderness to Palpation of Joints or Extremities Neurological: Cranial nerves II-XII grossly intact, Neuro grossly intact Psych/Mental Status: Normal Affect, Appropriate Patient seen and examined prior to discharge. Physical assessment as noted above. Patient is stable for discharge with follow up recommendations as noted above. This patient was seen by MARIPOSA Tijerina under the supervision of Dr. Khoury. Patient Problems: Active and Suspected Problems (Last Reviewed 12/10/18 @ 10:00 by Raheem Hess MD) Chest pain (Acute) - Physical Exam Vital Signs Temp Pulse Resp BP Pulse Ox 98.7 F 159 H 16 122/62 H 90 12/28/18 04:40 12/28/18 09:09 12/28/18 06:56 12/28/18 04:40 12/28/18 06:56 Oxygen Delivery Method Room Air Weight: 208 lb 8.917 oz Body Mass Index (BMI) 29.0 Intake and Output for Last 24 Hours 12/26/18 12/27/18 12/28/18 23:59 23:59 23:59 Intake Total 360 / 360 850 / 1210 985 / 985 Balance 360 / 360 850 / 1210 985 / 985 Discharge Diet: Low fat/ Low Cholesterol Discharge Activity: Return to Normal Activity Call your doctor if you observe: Shortness of breath, Dizziness, Fainting spells, Chest pain Home Medications: Medications to take at Discharge Aspirin [Aspirin, Baby] 81 mg PO DAILY@0800 02/15/13 Fluticasone/Salmeterol [Advair 250/50 Mcg Diskus] 1 puff INHALATION BID 02/15/13 Ramipril [Altace] 2.5 mg PO DAILY 02/15/13 Tamsulosin HCl [Flomax] 0.4 mg PO QHS 02/15/13 Multivit-Min/FA/Lycopen/Lutein [Centrum Silver Tablet] 1 ea PO DAILY 06/02/15 hydrochlorothiazide 25 mg tablet 25 mg PO QAM 12/10/17 atorvastatin 80 mg tablet 40 mg PO QHS tab 12/10/18 nitroglycerin 0.4 mg sublingual tablet 0.4 mg SUBLINGUAL Q5-15M 12/10/18 omeprazole 20 mg capsule,delayed release 20 mg PO DAILY 12/10/18 [facility] Physician: [facility] [Primary Care Provider] - Please follow up with your Primary Care Physician in: 1 Week Please Follow Up With: Raheem Hess MD When: As scheduled Patient Instructions: CHEST PAIN, NonCardiac Disposition: Home Minutes spent on discharge:: 35 Patient Condition:: Stable Medical Necessity - Tobacco Use Smoking Status: Former smoker Meaningful Use Info Meaningful Use Diagnoses (Choose all that apply): None applicable <Isac Khoury - Last Filed: 12/28/18 15:13> Discharge Date and Diagnosis - Secondary Discharge Diagnosis Chronic Problems (Last Reviewed 12/10/18 @ 10:00 by Raheem Hess MD) Hyperlipidemia (Chronic) Atherosclerosis of coronary artery of [place] heart without angina pectoris (Chronic) PCI-CRISS-OM1 05/2000; CSD-SZQ-Tghtqb LAD w/ 2.5 x 18 mm and Mid-LAD w/ 2.5 x 30 mm [place] Stent 07/03/2010 Essential (primary) hypertension (Chronic) Hospital Course and Treatment Summary of Care Provided: Patient seen and examined independently. Data reviewed. I agree with the above note by the nurse practitioner. The patient is a 83 year old M presents with chest pain. Patient underwent a cardiac work-up, including a stress test that was negative. Patient did have some hypoxia and did undergo CT of the chest that showed some hazy groundglass opacity. Patient did well and his exam was unremarkable so the [place]'s capacity was not further identified the patient was otherwise stable. Further symptoms have been the patient may benefit from being reimaged in the coming weeks but no additional work-up was performed. [] - Physical Exam General: Alert, No apparent distress HEENT: Atraumatic, Normocephalic Oral: Moist Mucosa, No Gingival or Mucosal Lesions/ Ulcerations Neck: No Nodes, Thyroid Normal Size and Texture Lungs: Clear to auscultation, Normal air movement Cardiovascular: Regular rate, Regular Rhythm, Normal S2 Vital Signs Temp Pulse Resp BP Pulse Ox 36.4 C L 71 18 114/54 L 93 12/28/18 12:44 12/28/18 12:44 12/28/18 12:44 12/28/18 12:44 12/28/18 12:44 Oxygen Delivery Method Room Air Weight: 94.6 kg Body Mass Index (BMI) 29.0 Intake and Output for Last 24 Hours 12/26/18 12/27/18 12/28/18 23:59 23:59 23:59 Intake Total 360 / 360 850 / 1210 985 / 985 Balance 360 / 360 850 / 1210 985 / 985 Laboratory Tests Past 24 Hrs 12/27/18 05:49 Diff Path Review Reviewed Discharge Diet: Low fat/ Low Cholesterol Discharge Activity: Return to Normal Activity Call your doctor if you observe: Shortness of breath, Dizziness, Fainting spells, Chest pain Disposition: Home Patient Condition:: Stable Medical Necessity - Tobacco Use Smoking Status: Former smoker Meaningful Use Info Meaningful Use Diagnoses (Choose all that apply): None applicable Code Visit OBSV E&M: 20963 Observation care discharge
--- NOTE | 2018-12-28 10:30 | CASEMGMT ---
Intro role of CM to patient and [facility] form explained re: Observation status for treatment of chest pain. Explained hospitalization will be paid per insurance policy for Outpatient billing and condition will continue to be evaluated for Inpt necessity. Also let pt know that [facility] sends paper in the billing packet with their phone number if questions arise. Discussed Pharmacy section of [facility] form and self administered medication guideline. Pt verbalizes understanding and does not have further questions. Form signed and placed in chart, copy to pt. JEFFREY OYSTER OPENER CM
--- NOTE | 2018-12-28 11:34 | PHA.DC.MR ---
Pharmacy Service has performed discharge medication reconciliation for this patient. No new medications at time of discharge. medications reviewed from previously reported home medications. The patient's discharge medication list was reviewed for discrepancies and discrepancies were resolved. Home Medications Aspirin [Aspirin, Baby] 81 mg PO DAILY@0800 02/15/13 Fluticasone/Salmeterol [Advair 250/50 Mcg Diskus] 1 puff INHALATION BID 02/15/13 Ramipril [Altace] 2.5 mg PO DAILY 02/15/13 Tamsulosin HCl [Flomax] 0.4 mg PO QHS 02/15/13 Multivit-Min/FA/Lycopen/Lutein [Centrum Silver Tablet] 1 ea PO DAILY 06/02/15 hydrochlorothiazide 25 mg tablet 25 mg PO QAM 12/10/17 atorvastatin 80 mg tablet 40 mg PO QHS tab 12/10/18 nitroglycerin 0.4 mg sublingual tablet 0.4 mg SUBLINGUAL Q5-15M 12/10/18 omeprazole 20 mg capsule,delayed release 20 mg PO DAILY 12/10/18
[2018-12-28 12:27] LABS: Pathologist Review Reviewed
[2018-12-28 12:44] VITALS: BP 114/54; PULSE 71; RESP 18; TEMP 36.4; O2SAT 93
[2018-12-28] MEDS: hydroCHLOROthiazide 25 MG Tablet PO (12:47)
--- NOTE | 2018-12-28 13:01 | STRESSREP ---
Stress Test Report Pharmacologic myocardial perfusion stress test. 83-year-old man with a history of chest pain previous coronary artery disease. Resting EKG demonstrates normal sinus rhythm with a rate of 77 bpm right bundle branch block. Resting blood pressures 110/60 mmHg. 0.4 mg of regadenoson was infused per usual protocol followed by rapid injection continuous monitor car operator was performed. The patient maintained sinus rhythm throughout the recording. At rest there were no ST or T wave changes noted suggest abnormal flow reserve. The maximum heart rate was 92 bpm which was 67% maximum predicted heart rate. Resting blood pressures 110/60 meters of mercury final blood pressure was 116/60 meters of mercury. Myocardial perfusion protocol. 14.6 mCi of technetium 99m sestamibi was injected at rest. 0.4 mg of regadenoson was infused per usual protocol peak infusion 44.3 mCi of technetium 99m sestamibi was injected stress images were obtained stress and rest images were reconstructed and compared in the short axis vertical and horizontal long axis. Gated images were also obtained PACS Perfusion SPECT analysis: Review of the stress images demonstrate normal uptake of tracer noted in all areas of the myocardium. The rest images similar demonstrate a normal uptake of tracer noted in all areas of the myocardium. No areas of reversibility no suggest ischemia no previous infarct is noted. Gated SPECT analysis: The gated ejection fraction is noted to be 69%. Conclusion: Normal pharmacologic myocardial perfusion stress test. Preserved ejection fraction.
== END 2018-12-28 09:31 | disposition home or self-care (01) ==
LOC: ED 12:40 → PCU 16:30
PROVIDERS: Nurse Practitioner Family; Admitting Provider Family Medicine; Emergency Provider Emergency Medicine; Referring Provider Family Medicine
DX: R07.89 Other chest pain (principal); R73.9 Hyperglycemia, unspecified; R91.8 Other nonspecific abnormal finding of lung field; D72.829 Elevated white blood cell count, unspecified; Z79.899 Other long term (current) drug therapy; I25.10 Atherosclerotic heart disease of native coronary artery without angina pectoris; J45.909 Unspecified asthma, uncomplicated; E78.00 Pure hypercholesterolemia, unspecified; K21.9 Gastro-esophageal reflux disease without esophagitis; I10 Essential (primary) hypertension; E78.5 Hyperlipidemia, unspecified; C83.10 Mantle cell lymphoma, unspecified site; N40.0 Benign prostatic hyperplasia without lower urinary tract symptoms; Z95.5 Presence of coronary angioplasty implant and graft; Z90.49 Acquired absence of other specified parts of digestive tract; Z87.891 Personal history of nicotine dependence; Z79.82 Long term (current) use of aspirin; I45.10 Unspecified right bundle-branch block; R06.00 Dyspnea, unspecified
CPT/HCPCS: 36415; 71045; 71275; 78452; 80048; 80061; 83036; 83735; 83880; 84484; 85025; 85027; 85379; 93005; 93017; 94640; 96361; 96374; 96375; 99218; 99285; A9500; J7030; Q9967; A4216; G0378; J2785

== ENCOUNTER → 2019-05-01 07:58 | Outpatient (CLI) | payer MEDICARE, OTHER, SELFPAY ==
[2018-12-26 16:45] VITALS: BMI 29.0
--- NOTE | 2019-05-01 08:59 | US_ITS ---
STUDY: ABDOMINAL ULTRASOUND - LEFT UPPER QUADRANT REASON FOR VISIT: Male, 83 years old NON HODGKINS LYMPHOMA TECHNIQUE: Ultrasound evaluation of the right upper quadrant was performed with real-time and static lewis-scale imaging. TECHNICAL QUALITY: Limited. Examination limited by bowel gas. COMPARISON: None. FINDINGS: Spleen: The spleen is mildly enlarged measuring 13.3 x 7.0 x 5.8 cm with otherwise normal homogeneous echo pattern. Left Kidney: Normal size of the right kidney. The right kidney measures 11.2 x 4.6 x 4.6 cm. Normal renal cortex. The right cortex measures 1.3 cm. Within the upper pole of the left kidney there is a round anechoic structure compatible with a cyst and measuring 1.6 x 1.5 x 0.9 cm. There is a small echogenic, 6.7 x 5.6 mm structure within the cortex of the middle pole. Upon comparison to CT dated 05/29/2014 this is most compatible with a small angiomyolipoma There is no right hydronephrosis. US/Abdomen Limited IMPRESSION: Mild splenomegaly. 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 Remainder of the exam unremarkable. Electronically Signed: Nay Duncan MD at 1:12 EST , Service support ,
== END ==
DX: R68.81 Early satiety (principal); K21.9 Gastro-esophageal reflux disease without esophagitis
CPT/HCPCS: 76705

== ENCOUNTER 2019-06-20 11:08 | Observation (INO) | payer MEDICARE, OTHER, SELFPAY ==
[2018-12-26 16:45] VITALS: BMI 29.0
[2019-06-20] VITALS (12 sets, daily range): BP systolic 109–137; BP diastolic 50–73; PULSE 59–68; RESP 12–17; TEMP 36.4–36.5; O2SAT 94–98; BMI 28.7; BMI 28.3
--- NOTE | 2019-06-20 11:20 | EKG12_ITS ---
Test Reason : Blood Pressure : / mmHG Vent. Rate : 066 BPM Atrial Rate : 066 BPM P-R Int : 198 ms QRS Dur : 074 ms QT Int : 440 ms P-R-T Axes : 038 -23 018 degrees QTc Int : 461 ms Normal sinus rhythm Low voltage QRS Borderline ECG When compared with ECG of 20-JUN-2019 13:45, MANUAL COMPARISON REQUIRED, DATA IS UNCONFIRMED Confirmed by BART JUNE, FILI ([id number]), subeditor DANIS ELIZABETH ([id number]) on 06/22/2019 8:15:36 AM Referred By: GLADYS Confirmed By:FILI ARRIAGA MD
--- NOTE | 2019-06-20 11:20 | RAD_ITS ---
STUDY: X-RAY CHEST REASON FOR EXAM: Male, 83 years old. CHEST PAIN TECHNIQUE: Single AP portable view of the chest. COMPARISON: December 26, 2018 chest x-ray FINDINGS: There is a stable focus of scarring or linear density in the right midlung zone. There is no demonstrated pleural abnormality. There is borderline cardiomegaly. Normal mediastinum and ang. Normal visualized pulmonary arteries. There is atherosclerotic tortuosity of the aortic arch and descending thoracic aorta. There are diffuse degenerative changes of the visualized thoracic spine. Normal visualized ribs, clavicles, and shoulders. There is no demonstrated abnormality of the visualized soft tissue structures of the upper abdomen. RAD/Chest 1 View (Portable) IMPRESSION: Stable chest no visualized acute focal infiltrate. Electronically Signed: Alyssa Acuña MD at 12:09 EST Tel , Service support ,
--- NOTE | 2019-06-20 11:22 | ED.DCSUM_ITS ---
History of Present Illness Chief Complaint: Chest Pain Informant: Patient, Significant Other Onset: Today Context: Sudden Onset Timing: Continuous Quality: Pain Location: Left chest and left upper extremity Current Severity: Mild Maximum Severity: Moderate Worsened by: Nothing Relieved by: Nothing Associated Symptoms: Shortness of breath and diaphoresis Narrative: She is an elderly male with history of coronary disease. He has had stent [place] in 2000 and 2010. He does not recall the symptoms he had prior to placement of stents. He initially denied history of heart attack. He then corrected himself and states he was told by Dr. Raheem Hess that he did have a heart attack. There is no history of congestive heart failure. He does have history of hypercholesterolemia. He has not smoked since 1966. He states at approximate midnight he developed left arm discomfort that was followed by left chest pain and mild shortness of breath. He had no other symptoms. He went to bed. He was awakened from sleep with chest discomfort wit h radiation to left side and shortness of breath. He was not gasping for breath. He may have been slightly sweaty. He had no other symptoms. He states he took his aspirin this morning. He intermittently has swelling of his lower extremities. He denies orthopnea. He denies fever, chills night sweats. Does have a cough which he was told by his computer operations specialist that this may occasionally occur. He denies any infectious symptoms or URI symptoms. He denies GI symptoms and specifically denies black and maroon stool. He denies urologic symptoms. He denies leg pain or discoloration. Of note patient is a poor informant. He had to be redirected and asked specifically answer questions that were asked. Prior similar symptoms: No - Does not recall Recent Illness/Hospitalization: No - Past Medical History (1) Atherosclerosis of coronary artery of [place] heart without angina pectoris Status: Chronic Comment: PCI-CRISS-OM1 05/2000; LUZ-SSZ-Dydpbr LAD w/ 2.5 x 18 mm and Mid-LAD w/ 2.5 x 30 mm [place] Stent 07/03/2010 (2) Essential (primary) hypertension Status: Chronic (3) Hyperlipidemia Status: Chronic (4) History of coronary artery stent placement Status: Resolved Comment: PCI-CRISS-OM1 05/2000; UEE-ORV-Dyfpfj LAD w/ 2.5 x 18 mm and Mid-LAD w/ 2.5 x 30 mm [place] Stent 07/03/2010 Past Medical History - Allergies and Home Meds Allergies/Adverse Reactions: Allergies IV DYE Allergy (Uncoded 06/20/19 11:12) Mehul Primary Care Physician: [facility] [Primary Care Provider] - Prior records reviewed: Yes Surgical History: angioplasty - three stents, - - Tonsillectomy, cholecystectomy, hemorrhoidectomy Lives: Spouse/ Significant Other Smoking Status: Former smoker Alcohol: None Drugs: None - Family History Maternal Family History: Family History (Last Reviewed 12/26/18 @ 15:58 by MARIPOSA Tijerina) Brother Myocardial infarction Sister Myocardial infarction Mother Heart disease Family History: Reports: No pertinent history Review of Systems General: Denies: Chills, Fever, Sweats Eyes: Denies: Visual changes - bilaterally, Blurred Vision - bilaterally ENT: Denies: Rhinorrhea, Sore throat Cardiovascular: Reports: Chest pain. Denies: Palpitations, Heart racing, -, - Respiratory: Reports: Dyspnea. Denies: Cough, Sputum, Dyspnea on exertion, Orthopnea, Paroxysmal nocturnal dyspnea, -, - Gastrointestinal: Reports: Nausea. Denies: Abdominal pain, Vomiting, Diarrhea, Constipation, Melena, Hematochezia, -, - Genitourinary: Denies: Dysuria, Hematuria, Frequency Musculoskeletal: Denies: Myalgias, Arthralgias, Neck pain, Back pain, Swelling, Extremity Pain Skin: Denies: Rash, Wounds Neurological: Denies: Headache, Weakness, Numbness Hematologic: Denies: Easy bruising, Easy bleeding Allergy: Denies: Uticaria, Swelling of the mouth Physical Exam Vital Signs/Narrative: Vital Signs Temp Pulse Resp BP Pulse Ox 06/20/19 11:17 62 14 120/72 96 06/20/19 11:09 97.7 F L 63 16 137/73 H 96 Inital Vital Signs reviewed: Yes General: Well nourished, Well developed, No Acute Distress Head: Normocephalic, Atraumatic Eyes: Perrl, EOMI. Negative for: Pale conjunctiva, Scleral icterus ENT: Moist mucous membranes, No rhinorrhea Neck: Supple, Nontender Cardiovascular: Regular rate, Regular rhythm, No murmurs, Normal S1, Normal S2 Respiratory: No distress, CTA bilaterally, Chest nontender. Negative for: Rales, Rhonchi Abdomen: Soft, Nontender, Nondistended, Normal bowel sounds Back: Nontender, Normal Inspection. Negative for: CVA tenderness Extremities: Nontender, No edema Skin: Normal color, No rash Neurological: Alert, Oriented x3, Cranial nerves II-XII grossly intact, Normal Strength, Normal Sensation Psychological: Normal affect, Normal Mood Diagnostic/Tx/Re-eval Chest X-Ray - ED: 2 View, - - Portable chest x-ray reveals no acute process. There is slight rotation. Cardiac silhouette and cardiac size are normal. Osseous structures are unremarkable. There is evidence of discoid atelectasis right mid lung field. There is no effusion. There is no infiltrate. There is no evidence of pneumothorax. 06/20/19 11:20 Chest 1 View (Portable) [RAD] Stat Laboratory Results 06/20/19 06/20/19 11:10 11:10 WBC 15.2 H RBC 5.40 Hgb 16.2 Hct 49.5 MCV 91.7 MCH 30.0 MCHC 32.7 RDW Std Deviation 44.9 H RDW Coeff of Jack 13.5 Plt Count 157 MPV 8.8 Immature Gran % (Auto) 0.300 Neut % (Auto) 25.9 L Lymph % (Auto) 65.0 H [place] % (Auto) 5.2 Eos % (Auto) 3.1 Baso % (Auto) 0.5 Absolute Neuts (auto) 3.9 Absolute Lymphs (auto) 9.90 H Nucleated RBC % 0 Differential Comment SCANNED Diff Path Review May foll Reactive Lymphocytes 3+ Platelet Estimate ADEQUATE RBC Morphology NORM C+C Sodium 141 Potassium 4.0 Chloride 106 Carbon Dioxide 32.0 Anion Gap 3 L BUN 15 Creatinine 1.21 Estim Creat Clear Calc 50.77 Est GFR (MDRD) Af Amer 74 Est GFR (MDRD) Non-Af 61 BUN/Creatinine Ratio 12.4 Glucose 100 Calcium 9.3 Troponin I < 0.015 White count is elevated. This is nonspecific marker. White count can be elevated secondary to myocardial ischemia. First troponin is less than 0.015. Basic metabolic panel is normal. H&H is normal. Differential is workable for lymphocytosis. There is no history of leukemia. He reports no effect with nitro and arm pain. - Medical Decision Making With history of coronary disease and OH and risk factors will obtain work-up to evaluate for cardiac etiology versus noncardiac etiology. Since he does have a cough chest x-ray was obtained. Since he still the complaining of left arm discomfort he will receive nitroglycerin. ED Disposition - Plan for ED Patient: Disposition: Acute Care Hospital [facility] Diagnosis: Chest pain, History of coronary artery disease, History of hypertension, History of hypercholesterolemia [facility]errals[facility] [Primary Care Provider] -
[2019-06-20 11:28] LABS: Absolute Neutrophil Count 3.9 X10^3/uL (2.0-7.7); Basophil# 0.08 X10^3/uL; Basophil% 0.5 % (0-1); Eosinophil# 0.47 X10^3/uL; Eosinophils% 3.1 % (0-5); Hematocrit 49.5 % (40-54); Hemoglobin 16.2 g/dL (13.0-16.5); Mean Corp Hgb Conc 32.7 g/dL (32-36); Mean Corpuscular Volume 91.7 fL (80-94); Mean Platelet Vol. 8.8 fl (6.2-12.0); Monocyte# 0.79 X10^3/uL; Monocyte% 5.2 % (0-10); NRBC Flagged by Analyzer 0 % (0-5); Neutrophil # 3.94 X10^3/uL (2.7-7.7); Neutrophil % 25.9 % (47-70); POSITIVE DIFFERENTIAL YES; POSITIVE MORPHOLOGY YES; Platelet Count 157 K/mm3 (150-450); RBC Distribution Width CV 13.5 % (11.6-14.6); RBC Distribution Width SD 44.9 fl (35.1-43.9); White Blood Count 15.2 K/mm3 (4.4-11.0)
[2019-06-20 11:29] LABS: Differential Indicated SCAN CRITERIA MET
[2019-06-20 11:43] LABS: Anion Gap 3 (5-15); BUN 15 mg/dL (7-18); BUN/Creat Ratio 12.4 RATIO (10-20); Calcium,Total 9.3 mg/dL (8.5-10.1); Chloride 106 mmol/L (98-107); Creatinine, Serum 1.21 mg/dL (0.70-1.30); EST Glomerular Filtration Rate 61 mL/min (>60); Est Glom Filt Rate - Afr Amer 74 mL/min (>60); Estimated Creatinine Clearance 50.77 ml/min; Glucose 100 mg/dL (74-106); Sodium Level 141 mmol/L (136-145)
[2019-06-20 11:49] LABS: Differential Comment SCANNED; Platelet Estimate ADEQUATE (ADEQ); Reactive Lymphocyte 3+; Red Cell Morphology NORM C+C NORMAL (NORM C&C)
[2019-06-20] MEDS: Nitroglycerin SL (ED/IMG/CATH) 0.4 MG TABLET SUBLINGUAL (12:14)
--- NOTE | 2019-06-20 12:53 | NURSING ---
pcu obs jean medina
--- NOTE | 2019-06-20 13:06 | PCM.HP.STD ---
Problem List (1) History of coronary artery disease Status: Chronic (2) History of hypertension Status: Chronic (3) History of hypercholesterolemia Status: Chronic (4) Chest pain Status: Acute (5) Hyperlipidemia Status: Chronic (6) Atherosclerosis of coronary artery of [place] heart without angina pectoris Status: Chronic Comment: PCI-CRISS-OM1 05/2000; XOO-JPB-Ancxqv LAD w/ 2.5 x 18 mm and Mid-LAD w/ 2.5 x 30 mm [place] Stent 07/03/2010 (7) History of coronary artery stent placement Status: Resolved Comment: PCI-CRISS-OM1 05/2000; BNZ-UEY-Exeimk LAD w/ 2.5 x 18 mm and Mid-LAD w/ 2.5 x 30 mm [place] Stent 07/03/2010 (8) Essential (primary) hypertension Status: Chronic History of Present Illness Date of Admission: 06/20/19 Chief Complaint: chest pain The patient is a 83 year old M presents with chest pain. Chest pain that woke him roughly around 3 AM. Chest pain was left-sided with associated left neck pain and left arm pain. Symptoms persisted throughout the morning and the decision was made to present to the emergency room. In the emergency room, patient underwent a work-up including troponins and EKG. EKG showed a right bundle branch block but is unchanged from previous. Patient did receive nitroglycerin but did not alleviate his pain. Given the patient's history of coronary artery disease with stents, decision was made to bring patient in for further cardiac evaluation including a stress test. Patient was admitted with chest pain back in December of last year. Patient denies any shortness of breath, states that he has chronic lower extremity edema but unchanged. [] Past Medical History Past Medical History (Chronic Problems): Chronic Problems (Last Reviewed 06/20/19 @ 13:08 by Isac Khoury DO) History of coronary artery disease (Chronic) History of hypertension (Chronic) History of hypercholesterolemia (Chronic) Hyperlipidemia (Chronic) Atherosclerosis of coronary artery of [place] heart without angina pectoris (Chronic) PCI-CRISS-OM1 05/2000; PRU-KFL-Vqeddw LAD w/ 2.5 x 18 mm and Mid-LAD w/ 2.5 x 30 mm [place] Stent 07/03/2010 Essential (primary) hypertension (Chronic) Medical History: Medical History (Last Reviewed 06/20/19 @ 13:08 by Isac Khoury DO) Hyperlipidemia (Chronic) E78.5 Atherosclerosis of coronary artery of [place] heart without angina pectoris (Chronic) I25.10 PCI-CRISS-OM1 05/2000; UZQ-ZMP-Saxfsc LAD w/ 2.5 x 18 mm and Mid-LAD w/ 2.5 x 30 mm [place] Stent 07/03/2010 Essential (primary) hypertension (Chronic) I10 Asthma J45.909 BPH (benign prostatic hyperplasia) N40.0 GERD (gastroesophageal reflux disease) K21.9 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 Acute respiratory failure (Resolved) J96.00 Aspiration into lower respiratory tract (Resolved) T17.800A Allergies IV DYE Allergy (Uncoded 06/20/19 11:12) Hives Home Medications: Ambulatory Orders Medication Instructions Recorded Aspirin [Aspirin, Baby] 81 mg PO DAILY@0800 02/15/13 Fluticasone/Salmeterol [Advair 1 puff INHALATION BID 02/15/13 250/50 Mcg Diskus] Ramipril [Altace] 2.5 mg PO DAILY 02/15/13 Tamsulosin HCl [Flomax] 0.4 mg PO QHS 02/15/13 Multivit-Min/FA/Lycopen/Lutein 1 ea PO DAILY 06/02/15 [Centrum Silver Tablet] hydrochlorothiazide 25 mg tablet 25 mg PO QAM 12/10/17 atorvastatin 80 mg tablet 40 mg PO QHS tab 12/10/18 nitroglycerin 0.4 mg sublingual 0.4 mg SUBLINGUAL Q5-15M 12/10/18 tablet omeprazole 20 mg capsule,delayed 20 mg PO DAILY 12/10/18 release Surgical History: Surgical History (Last Reviewed 06/20/19 @ 13:08 by Isac Khoury DO) History of coronary artery stent placement (Resolved) Onset Date: 07/03/10 Z95.5 PCI-CRISS-OM1 05/2000; YWD-RTE-Bhcdua LAD w/ 2.5 x 18 mm and Mid-LAD w/ 2.5 x 30 mm [place] Stent 07/03/2010 History of cholecystectomy Z90.49 History of hemorrhoidectomy Z98.890 History of left heart catheterization Onset Date: 07/08/13 Z98.890 History of tonsillectomy Z90.89 Surgical History: angioplasty - three stents, - - Tonsillectomy, cholecystectomy, hemorrhoidectomy Psychiatric History: No pertinent psych hx Lives: Spouse/ Significant Other Smoking Status: Former smoker Alcohol: None Drugs: None - *Family History Maternal Family History: Family History (Last Reviewed 06/20/19 @ 13:08 by Isac Khoury DO) Brother Myocardial infarction Sister Myocardial infarction Mother Heart disease History Items: No pertinent history Review of Systems Constitutional: Denies: Anorexia, Chills, Fever Eyes: Denies: Blurred vision, Double vision HEENT: Denies: Head Aches, Sinus Congestion, Sinus Drainage Cardiovascular: Reports: Chest Pain, Edema. Denies: Palpitations Respiratory: Denies: Cough, Shortness of breath at rest, Sputum production Gastrointestinal: Denies: Abdominal Pain, Nausea, Vomiting Genitourinary: Denies: Dysuria Musculoskeletal: Reports: Arm Pain Skin: Denies: Rash, Wounds Endocrine: Denies: Change in Body Habitus Comment: All review systems are otherwise negative except for as mentioned above and in HPI. VTE Information - Inpt Only VTE Present on Admission: No VTE Mechan Device Prophylaxis: None VTE Pharm Prophylaxis ordered?: No Reason prophylaxis not ordered:: Treatment Not Indicated Patient Problems: Active and Suspected Problems (Last Reviewed 06/20/19 @ 13:08 by Isac Khoury DO) Chest pain (Acute) - Physical Exam Vitals/I&O's: Vital Signs Temp Pulse Resp BP Pulse Ox 36.5 C L 60 12 109/67 97 06/20/19 11:09 06/20/19 12:33 06/20/19 12:33 06/20/19 12:33 06/20/19 12:33 Oxygen Flow Rate (L/min) 3 Oxygen Delivery Method Nasal Cannula Weight: 96.1 kg Body Mass Index (BMI) 28.7 General: Alert, Cooperative, No apparent distress, - - Hard of hearing HEENT: Atraumatic, Normocephalic Oral: Moist Mucosa, No Gingival or Mucosal Lesions/ Ulcerations Neck: No Nodes, Trachea Midline Lungs: Clear to auscultation, Normal air movement, No rhonchi, No wheeze Cardiovascular: Regular rate, Regular Rhythm, Normal S1, Normal S2 Abdomen: Bowel Sounds Present, Soft, Non Tender, Non-Distended, No Hepato-splenomegaly Extremities: No edema, No Calf Tenderness Skin: No rashes, No breakdown Musculoskeletal: - - Slight tenderness of the left sternocleidomastoid muscle. Psych/Mental Status: Normal Affect, Appropriate Laboratory Results 06/20/19 11:10: WBC 15.2 H, RBC 5.40, Hgb 16.2, Hct 49.5, MCV 91.7, MCH 30.0, MCHC 32.7, RDW Std Deviation 44.9 H, RDW Coeff of Jack 13.5, Plt Count 157, MPV 8.8, Immature Gran % (Auto) 0.300, Neut % (Auto) 25.9 L, Lymph % (Auto) 65.0 H, [place] % (Auto) 5.2, Eos % (Auto) 3.1, Baso % (Auto) 0.5, Absolute Neuts (auto) 3.9, Absolute Lymphs (auto) 9.90 H, Nucleated RBC % 0, Differential Comment SCANNED, Diff Path Review May foll, Reactive Lymphocytes 3+, Platelet Estimate ADEQUATE, RBC Morphology NORM C+C 06/20/19 11:10: Sodium 141, Potassium 4.0, Chloride 106, Carbon Dioxide 32.0, Anion Gap 3 L, BUN 15, Creatinine 1.21, Estim Creat Clear Calc 50.77, Est GFR (MDRD) Af Amer 74, Est GFR (MDRD) Non-Af 61, BUN/Creatinine Ratio 12.4, Glucose 100, Calcium 9.3, Troponin I < 0.015 EKG personally reviewed and showed a normal sinus rhythm with a right bundle branch block. Unchanged from previous. Chest x-ray personally reviewed and showed normal airways with no pulmonary edema, no infiltrate. Current Medications Nitroglycerin (Nitrostat) 0.4 mg SUBLINGUAL Q5M PRN PRN Reason: Chest pain Last Admin: 06/20/19 12:14 Dose: 0.4 mg Documented by: Assessment/Plan All Active Problems (Last Reviewed 06/20/19 @ 13:08 by Isac Khoury DO) Chest pain (Acute) History of coronary artery stent placement (Resolved 07/03/10) Acute respiratory failure (Resolved) Aspiration into lower respiratory tract (Resolved) 1. Chest pain Left-sided and did not respond to nitroglycerin. Heart score of 6 and a JUDIT score of 5 Plan is to bring the patient in and have him undergo a chemical stress test. Based on results of the stress test, if it is normal, then he will be discharged home. If the stress test is abnormal, then cardiology be consulted and the ultimate plan would be to proceed with a possible heart catheterization. is mention the patient has been having a lot of belching and gas as of late. Patient has been having this intermittently and was to follow-up with gastroenterology, Dr. Parker, and x-ray the patient is scheduled for an EGD on the . I told his to hold off on canceling that appointment. The patient is discharged home on the that he would be able to make that appointment. But if it is abnormal then than it would be canceled. 2. VTE prophylaxis: Low risk and VTE prophylaxis not indicated 3. Advanced care planning: Discussed with the patient. Patient wishes to be DNR Comfort Care arrest at this time. 4. Leukocytosis: This is chronic. Outpatient follow-up. Code Visit OBSV E&M: [id number] Initial observation care L2
--- NOTE | 2019-06-20 13:24 | EKG12_ITS ---
Test Reason : CP ADMISSION Blood Pressure : / mmHG Vent. 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
[2019-06-20] MEDS: Budesonide Respules 0.5 MG/2 ML AMPUL.NEB. INHALATION (18:41)
[2019-06-20] MEDS: Albuterol 2.5 MG/3 ML VIAL.NEB. INHALATION (18:41)
[2019-06-20] MEDS: Atorvastatin Calcium 40 MG Tablet PO (21:10)
[2019-06-20] MEDS: Tamsulosin HCl 0.4 MG Capsule PO (21:10)
[2019-06-21] VITALS (7 sets, daily range): BP systolic 113–132; BP diastolic 57–68; PULSE 57–75; RESP 16–18; TEMP 36.4–36.8; O2SAT 94–97
[2019-06-21] MEDS: Aspirin 81 MG TAB.CHEW PO (06:14)
[2019-06-21] MEDS: 0.9% Saline Lock 10 ML Syringe IV (06:15)
[2019-06-21] MEDS: Budesonide Respules 0.5 MG/2 ML AMPUL.NEB. INHALATION (06:35)
[2019-06-21] MEDS: Albuterol 2.5 MG/3 ML VIAL.NEB. INHALATION ×2 (06:35→12:43)
[2019-06-21] MEDS: Ramipril 2.5 MG Capsule PO (06:38)
--- NOTE | 2019-06-21 07:25 | EKG12_ITS ---
Test Reason : CP Blood Pressure : / mmHG Vent. 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
[2019-06-21] MEDS: Multivitamins,Ther W-Minerals Tablet 1 TABLET PO (11:11)
[2019-06-21] MEDS: Pantoprazole Sodium 20 MG Tablet PO (11:11)
--- NOTE | 2019-06-21 12:02 | DCINST_ITS ---
- Discharge Diagnoses Current Active Problems: Current Active and Chronic Problems (Last Reviewed 06/20/19 @ 13:08 by Isac Khoury DO) History of coronary artery disease (Chronic) History of hypertension (Chronic) History of hypercholesterolemia (Chronic) Chest pain (Acute) You will use the following diet at home:: Cardiac Discharge Activity: Return to Normal Activity Call your doctor if you observe: Shortness of breath Allergies/Adverse Reactions: Allergies IV DYE Allergy (Uncoded 06/20/19 11:12) Hives Medications to take at Discharge Aspirin [Aspirin, Baby] 81 mg PO DAILY@0800 02/15/13 Fluticasone/Salmeterol [Advair 250/50 Mcg Diskus] 1 puff INHALATION BID 02/15/13 Ramipril [Altace] 2.5 mg PO DAILY 02/15/13 Tamsulosin HCl [Flomax] 0.4 mg PO QHS 02/15/13 Multivit-Min/FA/Lycopen/Lutein [Centrum Silver Tablet] 1 ea PO DAILY 06/02/15 hydrochlorothiazide 25 mg tablet 25 mg PO QAM 12/10/17 atorvastatin 80 mg tablet 40 mg PO QHS tab 12/10/18 nitroglycerin 0.4 mg sublingual tablet 0.4 mg SUBLINGUAL Q5-15M 12/10/18 omeprazole 20 mg capsule,delayed release 20 mg PO DAILY 12/10/18 Primary Care Physician: [facility] [Primary Care Provider] - Within 2 Weeks Test Results: Test results from this visit will be discussed in further detail at your follow- up appointment, if applicable. Proposed Discharge Date: 06/21/19
--- NOTE | 2019-06-21 12:03 | PCM.DC.SUM ---
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 Patient states that he awoke this way. The patient was brought in and evaluated. Patient had a stress test as well as other troponins and EKG were unremarkable. Patient stress test was normal so this is not cardiac. Patient will actually following up with Dr. Parker on the for an EGD. This could very well be gastric but may also been the fact that patient may have slept on on his left side that may have aggravated this. Patient will be discharged home in stable condition. [] Patient Problems: Active and Suspected Problems (Last Reviewed 06/20/19 @ 13:08 by Isac Khoury DO) Chest pain (Acute) - Physical Exam Vitals/I&O's: Vital Signs Temp Pulse Resp BP Pulse Ox 36.6 C 66 18 128/57 H 94 06/21/19 07:31 06/21/19 07:31 06/21/19 07:31 06/21/19 07:31 06/21/19 07:31 Oxygen Flow Rate (L/min) 3 Oxygen Delivery Method Room Air Weight: 94.8 kg Body Mass Index (BMI) 28.3 Intake and Output for Last 24 Hours 06/19/19 06/20/19 06/21/19 23:59 23:59 23:59 Intake Total 920 / 920 0 / 0 Output Total 150 / 150 350 / 350 Balance 770 / 770 -350 / -350 General: Alert, No apparent distress HEENT: Atraumatic, Normocephalic Oral: Moist Mucosa, No Gingival or Mucosal Lesions/ Ulcerations Neck: No Nodes, Trachea Midline Lungs: Clear to auscultation, Normal air movement, No rhonchi, No wheeze, No rales Cardiovascular: Regular rate, Regular Rhythm, Normal S1, Normal S2, No murmurs Abdomen: Bowel Sounds Present, Soft, Non Tender, Non-Distended, No Hepato-splenomegaly Laboratory Results 06/20/19 14:12: Troponin I < 0.015 06/20/19 17:25: Troponin I < 0.015 Current Medications Acetaminophen (Tylenol) 650 mg PO Q6H PRN PRN PRN Reason: Pain Score 1-10/Temp > 100.7 F Albuterol Sulfate (Ventolin Aerosols) 2.5 mg INHALATION Q6HWA.RT [facility] Last Admin: 06/21/19 06:35 Dose: 2.5 mg Documented by: Aspirin (Aspirin, Baby) 81 mg PO DAILY@0800 [facility] Last Admin: 06/21/19 06:14 Dose: 81 mg Documented by: Atorvastatin Calcium (Lipitor) 40 mg PO QHS [facility] Last Admin: 06/20/19 21:10 Dose: 40 mg Documented by: Budesonide (Pulmicort Aerosol) 0.5 mg INHALATION Q12H.[facility] Last Admin: 06/21/19 06:35 Dose: 0.5 mg Documented by: Glucagon () 1 mg IM .X1 PRN PRN Reason: Hypoglycemia Hydrochlorothiazide (Hctz) 25 mg PO QAM [facility] Sodium Chloride () 250 mls @ 15 mls/hr IV .[id number] PRN PRN Reason: Saline Flush Sodium Chloride () 250 mls @ 15 mls/hr IV .[id number] PRN PRN Reason: Additional IVPB Infusion Dextrose (Dextrose 10%-Water) 250 mls @ 999 mls/hr IV .Q16M PRN; Protocol PRN Reason: HYPOGLYCEMIA Multivitamins/Minerals (Multivitamin With Minerals (Bkc)) 1 tablet PO DAILY@0800 [facility] Last Admin: 06/21/19 11:11 Dose: 1 tablet Documented by: Nitroglycerin (Nitrostat) 0.4 mg SUBLINGUAL Q5M PRN PRN Reason: ANGINA Ondansetron HCl (Zofran) 4 mg IV Q8H PRN PRN PRN Reason: NAUSEA/VOMITING Pantoprazole Sodium (Protonix) 20 mg PO DAILY [facility] Last Admin: 06/21/19 11:11 Dose: 20 mg Documented by: Ramipril (Altace) 2.5 mg PO DAILY [facility] Last Admin: 06/21/19 06:38 Dose: 2.5 mg Documented by: Sodium Chloride () 10 - 40 ml IV UD PRN PRN Reason: SALINE FLUSH Last Admin: 06/21/19 06:15 Dose: 10 ml Documented by: Tamsulosin HCl (Flomax) 0.4 mg PO QHS [facility] Last Admin: 06/20/19 21:10 Dose: 0.4 mg Documented by: Discharge Diet: Low fat/ Low Cholesterol Discharge Activity: Return to Normal Activity Call your doctor if you observe: Shortness of breath Home Medications: Medications to take at Discharge Aspirin [Aspirin, Baby] 81 mg PO DAILY@0800 02/15/13 Fluticasone/Salmeterol [Advair 250/50 Mcg Diskus] 1 puff INHALATION BID 02/15/13 Ramipril [Altace] 2.5 mg PO DAILY 02/15/13 Tamsulosin HCl [Flomax] 0.4 mg PO QHS 02/15/13 Multivit-Min/FA/Lycopen/Lutein [Centrum Silver Tablet] 1 ea PO DAILY 06/02/15 hydrochlorothiazide 25 mg tablet 25 mg PO QAM 12/10/17 atorvastatin 80 mg tablet 40 mg PO QHS tab 12/10/18 nitroglycerin 0.4 mg sublingual tablet 0.4 mg SUBLINGUAL Q5-15M 12/10/18 omeprazole 20 mg capsule,delayed release 20 mg PO DAILY 12/10/18 [facility] Phys[facility] [Primary Care Provider] - Within 2 Weeks Disposition: Home Minutes spent on discharge:: 26 Patient Condition:: Good Medical Necessity - Tobacco Use Smoking Status: Former smoker Meaningful Use Info Meaningful Use Diagnoses (Choose all that apply): None applicable Code Visit OBSV E&M: 57723 Observation care discharge
[2019-06-21] MEDS: hydroCHLOROthiazide 25 MG Tablet PO (12:15)
--- NOTE | 2019-06-21 12:16 | PHA.DC.MR ---
Pharmacy Service has performed discharge medication reconciliation for this patient. The patient's discharge medication list was reviewed for discrepancies and discrepancies were resolved. Home Medications Aspirin [Aspirin, Baby] 81 mg PO DAILY@0800 02/15/13 Fluticasone/Salmeterol [Advair 250/50 Mcg Diskus] 1 puff INHALATION BID 02/15/13 Ramipril [Altace] 2.5 mg PO DAILY 02/15/13 Tamsulosin HCl [Flomax] 0.4 mg PO QHS 02/15/13 Multivit-Min/FA/Lycopen/Lutein [Centrum Silver Tablet] 1 ea PO DAILY 06/02/15 hydrochlorothiazide 25 mg tablet 25 mg PO QAM 12/10/17 atorvastatin 80 mg tablet 40 mg PO QHS tab 12/10/18 nitroglycerin 0.4 mg sublingual tablet 0.4 mg SUBLINGUAL Q5-15M 12/10/18 omeprazole 20 mg capsule,delayed release 20 mg PO DAILY 12/10/18
--- NOTE | 2019-06-21 12:34 | STRESSREP ---
Stress Test Report Pharmacologic myocardial perfusion stress test. 83-year-old man with a history of chest pain. Stress protocol: Resting EKG demonstrates normal sinus rhythm with a rate of 63 bpm right bundle branch block is noted resting blood pressure is 116/78 mmHg. 0.4 mg of regadenoson was infused per usual protocol followed by rapid intravenous saline flush injection continuous EKG monitoring was performed. The patient maintained sinus rhythm throughout the recording. At rest there were no ST or T wave changes noted to suggest abnormal flow reserve a peak infusion nonspecific ST-T wave changes were noted. The resting blood pressure was 116/78 with a final blood pressure of 128/68. The peak blood pressure was 138/64. Myocardial perfusion protocol. 14.1 mCi of technetium 99m sestamibi was injected at rest. 0.4 mg of regadenoson was infused per usual protocol peak infusion 43.8 mCi of technetium 99m sestamibi was injected stress images were obtained stress and rest images were reconstructed and compared in the short axis vertical long horizontal long axis. Gated images were also obtained per Perfusion SPECT analysis: Review of the images demonstrate normal uptake of tracer noted in all areas of the myocardium the resting images similar demonstrate normal uptake of tracer noted in all areas of the myocardium. No reversibility is noted suggest ischemia. Gated SPECT analysis: The gated ejection fraction is 81%. Conclusion: Normal pharmacologic myocardial perfusion stress test. Preserved ejection fraction.
[2019-06-21 14:03] LABS: Pathologist Review Reviewed
== END 2019-06-21 12:03 | disposition home or self-care (01) ==
LOC: ED 12:50 → PCU 13:09
PROVIDERS: Emergency Provider Emergency Medicine
DX: R07.89 Other chest pain (principal); R06.02 Shortness of breath; I25.10 Atherosclerotic heart disease of native coronary artery without angina pectoris; I10 Essential (primary) hypertension; E78.5 Hyperlipidemia, unspecified; Z95.5 Presence of coronary angioplasty implant and graft; Z79.899 Other long term (current) drug therapy; Z79.82 Long term (current) use of aspirin; Z87.891 Personal history of nicotine dependence; M54.2 Cervicalgia; M79.602 Pain in left arm; I45.10 Unspecified right bundle-branch block; I44.0 Atrioventricular block, first degree; K21.9 Gastro-esophageal reflux disease without esophagitis; J45.909 Unspecified asthma, uncomplicated; N40.0 Benign prostatic hyperplasia without lower urinary tract symptoms; D72.829 Elevated white blood cell count, unspecified
CPT/HCPCS: 36415; 71045; 78452; 80048; 84484; 85025; 93005; 93017; 94640; 99218; 99283; A9500; A4216; G0378; J2785

== ENCOUNTER 2020-03-20 18:50 | Emergency (ER) | payer OTHER, MEDICARE, SELFPAY ==
[2019-12-14 09:30] VITALS: BMI 29.9
[2020-03-20 18:52] VITALS: BP 132/62; PULSE 63; RESP 14; TEMP 36.5; O2SAT 96; BMI 28.6
--- NOTE | 2020-03-20 20:20 | CT_ITS ---
STUDY: CT ABDOMEN AND PELVIS WITHOUT CONTRAST REASON FOR EXAM: Male, 84 years old. BLOATING X 1 WEEK, WITH BURPING, HX HTN, SD RADIATION DOSAGE (If Supplied By Facility): CTDIvol = ( 11.66 ) mGy, DLP = ( 576.66 ) mGycm TECHNIQUE: Transaxial images were obtained from the dome of the diaphragm to the symphysis pubis without oral contrast, and without intravenous contrast. Sagittal and coronal images were reconstructed. Individualized dose optimization techniques were used for this CT. COMPARISON: 05/29/2014 FINDINGS: There is minimal bibasilar atelectasis and/or scarring. There is a stable subpleural 4 mm nodule within the right middle lobe. There are coronary artery calcifications present. The lack of intravenous contrast limits evaluation of solid visceral organs. Normal liver. There is non-visualization of the gallbladder, which may be secondary to either contraction or a prior cholecystectomy. There is splenomegaly. Normal pancreas. Normal bilateral adrenal glands. There are bilateral renal cysts. There are punctate calcifications within the kidneys which may be vascular or may reflect nonobstructing renal calculi. There is a small hiatal hernia. There is a duodenal diverticulum. There are multiple colonic diverticula consistent with diverticulosis. The appendix is visualized and appears normal. There are a few scattered peripheral calcifications of the abdominal aorta consistent with atherosclerosis. Normal inferior vena cava. Normal retroperitoneum. Normal urinary bladder. There is enlargement of the prostate gland. Normal abdominal wall. There are diffuse degenerative changes of the visualized lumbar spine. CT/Abdomen/Pelvis without Cont IMPRESSION: Enlarged prostate gland. Atherosclerosis. Colonic diverticulosis. Small hiatal hernia. Splenomegaly. Electronically Signed: Jennifer Galindo MD at 21:31 EST Tel , Service support ,
[2020-03-20] MEDS: Mag Hydrox/Al Hydrox/Simeth 30 ML UDC PO (20:37)
[2020-03-20 20:50] LABS: Basophil# 0.08 X10^3/uL; Basophil% 0.4 % (0-1); Eosinophil# 0.37 X10^3/uL; Eosinophils% 1.8 % (0-5); Hematocrit 45.3 % (40-54); Hemoglobin 14.8 g/dL (13.0-16.5); Lymphocyte % 74.7 % (19-41); Mean Corp Hgb Conc 32.7 g/dL (32-36); Mean Corpuscular Volume 91.7 fL (80-94); Mean Platelet Vol. 8.8 fl (6.2-12.0); Monocyte# 0.63 X10^3/uL; Monocyte% 3.1 % (0-10); NRBC Flagged by Analyzer 0 % (0-5); Neutrophil # 3.96 X10^3/uL (2.7-7.7); Neutrophil % 19.8 % (47-70); POSITIVE DIFFERENTIAL YES; POSITIVE MORPHOLOGY YES; Platelet Count 175 K/mm3 (150-450); RBC Distribution Width CV 13.6 % (11.6-14.6); RBC Distribution Width SD 45.7 fl (35.1-43.9); Red Blood Count 4.94 M/mm3 (4.6-6.2); White Blood Count 20.1 K/mm3 (4.4-11.0)
[2020-03-20 21:09] LABS: AST(SGOT) 34 U/L (15-37); Alanine Aminotransfer ALT/SGPT 30 U/L (16-61); Albumin, Serum 3.3 g/dL (3.2-5.0); Alkaline Phosphatase 84 U/L (45-117); Anion Gap 5 (5-15); BUN 17 mg/dL (7-18); BUN/Creat Ratio 14.4 RATIO (10-20); Bilirubin, Direct 0.09 mg/dL (0.00-0.30); Calcium,Total 8.9 mg/dL (8.5-10.1); Chloride 108 mmol/L (98-107); Creatinine, Serum 1.18 mg/dL (0.70-1.30); EST Glomerular Filtration Rate 62 mL/min (>60); Est Glom Filt Rate - Afr Amer 76 mL/min (>60); Estimated Creatinine Clearance 49.63 ml/min; Globulin 3.2 g/dL (2.2-4.2); Glucose 95 mg/dL (74-106); Lipase 99 U/L (73-393); Potassium 4.1 mmol/L (3.5-5.1); Protein, Total 6.5 g/dL (6.4-8.2); Sodium Level 141 mmol/L (136-145)
[2020-03-20 21:29] LABS: Differential Indicated SCAN CRITERIA MET
[2020-03-20 21:31] LABS: Anisocytosis RARE; Atypical Lymphocyte 1+ %; Macrocytosis RARE; Platelet Estimate ADEQUATE (ADEQ); Red Cell Morphology N CHROM NORMAL (NORM C&C)
--- NOTE | 2020-03-20 21:49 | ED.DCSUM_ITS ---
- ER Visit Summary Date of Service: 03/20/20 Chief Complaint: Bloating and belching History of Present Illness: The patient is a 84 M who presents with bloating and belching. He states that started 3 hours ago at home. He states is very mild and essentially improved since he came to the emergency department. He states he has had a normal bowel movement this morning. His main complaint is of this belching. He denies being nauseated or having vomiting. No diarrhea or constipation. He has not had any fevers. He denies any history of abdominal surgeries in the past. He took nothing for this at home. Physical Examination: Vital signs reviewed. HEENT exam unremarkable. Heart is regular rate and rhythm without murmurs. Lungs are clear to auscultation. Abdomen is soft with tenderness in the right upper quadrant. Extremities reveal no edema. Skin exam normal. Neurologic exam normal. Test Results: His white blood cell count was 20.1, chloride 108. Liver enzymes and lipase are normal. CAT scan with out contrast shows an enlarged prostate, atherosclerosis and a hiatal hernia. There are no other acute findings Emergency Department Course and Treatment: The patient was given a GI cocktail. Upon reevaluation he is resting calmly. He states his symptoms are resolved at this time. He does have an elevated white blood cell count of 20.1. His past couple of blood draws have had elevated WBC counts as well. He is having no urinary symptoms. His vital signs are normal. I do not see any other infectious cause for this. His symptoms have resolved. He would like to be discharged home. I encouraged him that he needs to follow-up with his PCP. I do not feel antibiotics are necessary at this time. Treatment Plan: [] Disposition: Discharge Impression: Abdominal pain This note was generated with [employer] dictation software. It may contain incorrect words, spelling, and punctuation that were not noted in review of the chart prior to signing ED Disposition - Plan for ED Patient: Disposition: Home or Assisted Living Instructions: ED Unknown Causes of Abdominal Pain Male Referrals: [facility],[place] [Primary Care Provider] -
[2020-03-21 14:02] LABS: Pathologist Review Reviewed
== END 2020-03-20 22:05 | disposition home or self-care (01) ==
PROVIDERS: Emergency Provider Emergency Medicine
DX: R10.9 Unspecified abdominal pain (principal); K44.9 Diaphragmatic hernia without obstruction or gangrene; D72.829 Elevated white blood cell count, unspecified; I25.10 Atherosclerotic heart disease of native coronary artery without angina pectoris; J45.909 Unspecified asthma, uncomplicated; N40.0 Benign prostatic hyperplasia without lower urinary tract symptoms; Z79.82 Long term (current) use of aspirin; Z79.899 Other long term (current) drug therapy
CPT/HCPCS: 74176; 80048; 80076; 83690; 85025; 99284; A4216

== ENCOUNTER 2020-06-13 10:12 | Emergency (ER) | payer OTHER, MEDICARE, SELFPAY ==
[2020-06-13 10:12] VITALS: BP 135/95; PULSE 77; RESP 15; TEMP 36.4; O2SAT 95; BMI 28.3
--- NOTE | 2020-06-13 10:25 | EKG12_ITS ---
Test Reason : CP Blood Pressure : / mmHG Vent. Rate : 071 BPM Atrial Rate : 071 BPM P-R Int : 188 ms QRS Dur : 074 ms QT Int : 398 ms P-R-T Axes : 045 -33 029 degrees QTc Int : 432 ms Normal sinus rhythm Left axis deviation Low voltage QRS Inferior infarct , age undetermined Abnormal ECG Confirmed by BART JUNE, FILI ([id number]), editor greeting card DANIS ELIZABETH ([id number]) on 06/14/2020 1:37:51 PM Referred By: Confirmed By:FILI ARRIAGA MD
--- NOTE | 2020-06-13 10:29 | ED.VIS.GEN ---
History of Present Illness Chief Complaint: Chest Pain Informant: Patient Narrative: 84-year-old male presenting for chest pain. Patient states the symptoms started this morning. He is unsure of exactly what time but it was around the time the son came up. He describes the discomfort as a fart in his chest. Over the past month he has been belching more than normal. He states that he has stomach problems. He sees the [facility] for this. He cannot tell me exactly what it is. He tells me he takes Mylanta. He tells me that he may have had gallstones and a cholecystectomy in the past but it could have been kidney stones he is not sure. He has no coronary artery disease having had stents in 2000 in 2010. He was admitted to the hospital last June and had a negative stress test and cardiac enzymes. Patient currently denies any nausea vomiting diarrhea. No diaphoresis or dyspnea. Patient is a poor historian and cannot relay most of his medical problems or care. - Past Medical History (1) Atherosclerosis of coronary artery of [place] heart without angina pectoris Status: Chronic (2) Essential (primary) hypertension Status: Chronic (3) Hyperlipidemia Status: Chronic (4) Right bundle branch block (RBBB) Status: Chronic (5) History of coronary artery stent placement Status: Resolved Comment: PCI-CRISS-OM1 05/2000; [facility] LAD w/ 2.5 x 18 mm and Mid-LAD w/ 2.5 x 30 mm [place] Stent 07/03/2010 Past Medical History - Allergies and Home Meds Allergies/Adverse Reactions: Allergies IV DYE Allergy (Uncoded 06/13/20 10:28) Mehul Primary Care Physician: [place] [Primary Care Provider] - Surgical History: angioplasty - three stents, - - Tonsillectomy, cholecystectomy, hemorrhoidectomy Lives: Spouse/ Significant Other Smoking Status: Former smoker Drugs: None - Family History Maternal Family History: Family History (Last Reviewed 12/14/19 @ 10:[address] Raheem Hess MD) Brother Myocardial infarction Sister Myocardial infarction Mother Heart disease Family History: Reports: No pertinent history Review of Systems General: Denies: Chills, Fever, Sweats Eyes: Denies: Visual changes - bilaterally, Diplopia ENT: Denies: Rhinorrhea, Sore throat Cardiovascular: Reports: Chest pain. Denies: Palpitations Respiratory: Denies: Dyspnea, Cough, Dyspnea on exertion Gastrointestinal: Reports: Abdominal pain. Denies: Nausea, Vomiting, Diarrhea, Melena, Hematochezia Genitourinary: Denies: Dysuria, Hematuria, Frequency Musculoskeletal: Denies: Back pain, Extremity Pain Skin: Denies: Rash, Wounds Neurological: Denies: Headache, Weakness, Numbness Physical Exam Vital Signs/Narrative: Vital Signs Temp Pulse Resp BP Pulse Ox 06/13/20 10:12 97.5 F L 77 15 135/95 H 95 Inital Vital Signs reviewed: Yes General: Well nourished, Well developed, No Acute Distress Head: Normocephalic, Atraumatic Eyes: Perrl, EOMI ENT: Moist mucous membranes, No rhinorrhea Neck: Supple, Nontender Cardiovascular: Regular rate, Regular rhythm, No murmurs Respiratory: No distress, CTA bilaterally, Chest nontender Abdomen: Soft, Nontender, Nondistended, Normal bowel sounds Back: Nontender, Normal Inspection Extremities: Nontender, No edema Skin: Normal color, No rash Neurological: Alert, Oriented x3, Cranial nerves II-XII grossly intact, Normal Strength, Normal Sensation Psychological: Normal affect, Normal Mood Diagnostic/Tx/Re-eval Clinical Impression(s) from Imaging Studies Chest X-Ray 06/13/20 10:45 IMPRESSION: Stable mild scarring at the lung bases. Electronically Signed: Octavio Dye MD at 11:08 EST , Service support , - EKG Initial EKG Interpretation: Sinus Rhythm - EKG demonstrates a normal sinus rhythm at a rate of 71 with bundle branch block (right) - Medical Decision Making Patient's white blood cell count is elevated. He has a history of mantle cell lymphoma. My interpretation of the single view portable chest x-ray is no acute disease. Patient was observed on the monitor has had no events. His initial troponin was negative. As he has not had symptoms for 6 hours constantly at the time of the initial draw we repeated a troponin at the 3-hour from initial draw. This also was negative. Patient received a GI cocktail with questionable improvement. I will instruct the patient to take his omeprazole twice a day. He should follow-up with his oven press tender. Return if worsening or concerns ED Disposition - Plan for ED Patient: Disposition: Home or Assisted Living Diagnosis: Chest pain Instructions: ED Chest Pain, Noncardiac Additional Instructions: Please follow-up with your oven press tender I would recommend taking your omeprazole once in the morning and once at night.
[2020-06-13] MEDS: Mag Hydrox/Al Hydrox/Simeth 30 ML UDC PO (10:35)
[2020-06-13 10:45] LABS: Absolute Neutrophil Count 4.4 X10^3/uL (2.0-7.7); Basophil# 0.08 X10^3/uL; Basophil% 0.5 % (0-1); Eosinophil# 0.27 X10^3/uL; Eosinophils% 1.8 % (0-5); Hematocrit 48.2 % (40-54); Hemoglobin 15.8 g/dL (13.0-16.5); Mean Corp Hgb Conc 32.8 g/dL (32-36); Mean Corpuscular Hgb 29.8 pg (27.0-32.0); Mean Corpuscular Volume 90.9 fL (80-94); Mean Platelet Vol. 8.6 fl (6.2-12.0); Monocyte# 0.66 X10^3/uL; Monocyte% 4.4 % (0-10); NRBC Flagged by Analyzer 0 % (0-5); Neutrophil # 4.39 X10^3/uL (2.7-7.7); Neutrophil % 28.9 % (47-70); POSITIVE DIFFERENTIAL YES; POSITIVE MORPHOLOGY YES; Platelet Count 171 K/mm3 (150-450); RBC Distribution Width CV 13.5 % (11.6-14.6); White Blood Count 15.2 K/mm3 (4.4-11.0)
--- NOTE | 2020-06-13 10:45 | RAD_ITS ---
STUDY: X-RAY CHEST REASON FOR EXAM: Male, 84 years old. Chest pain starting at 0600, sharp across chest radiating to rt shoulder, feels weak -- HX DC TECHNIQUE: Single AP portable view of the chest. COMPARISON: Comparison is made with prior study dated 06/20/2019. FINDINGS: EKG electrodes are seen. Minimal residual linear markings at the right lung base suggestive of mild scarring. Stable mild scarring at the left lung base. There is no demonstrated pleural abnormality. Normal size heart. Normal mediastinum and ang. Normal visualized pulmonary arteries. There is atherosclerotic calcification of the aortic arch with tortuosity. There are diffuse degenerative changes of the visualized thoracic spine. There is degenerative osteoarthritis of the bilateral shoulders. There is no demonstrated abnormality of the visualized soft tissue structures of the upper abdomen. RAD/Chest 1 View (Portable) IMPRESSION: Stable mild scarring at the lung bases. Electronically Signed: Octavio Dye MD at 11:08 EST , Service support ,
[2020-06-13 10:48] LABS: Differential Indicated SCAN CRITERIA MET
[2020-06-13 11:05] LABS: Anion Gap 5 (5-15); BUN 17 mg/dL (7-18); BUN/Creat Ratio 15.2 RATIO (10-20); Calcium,Total 9.3 mg/dL (8.5-10.1); Chloride 105 mmol/L (98-107); Creatinine, Serum 1.12 mg/dL (0.70-1.30); EST Glomerular Filtration Rate 66 mL/min (>60); Est Glom Filt Rate - Afr Amer 80 mL/min (>60); Estimated Creatinine Clearance 52.29 ml/min; Glucose 119 mg/dL (74-106); Potassium 3.9 mmol/L (3.5-5.1); Sodium Level 139 mmol/L (136-145)
[2020-06-13 11:24] LABS: Reactive Lymphocyte 1+
[2020-06-13 11:25] VITALS: BP 126/74; PULSE 62; RESP 16; O2SAT 91
[2020-06-13 12:31] VITALS: BP 126/76; PULSE 69; RESP 15; O2SAT 98
[2020-06-13 14:38] VITALS: BP 128/74; PULSE 70; RESP 16; O2SAT 96
--- NOTE | 2020-06-13 14:41 | ED.RN ---
upon discharge education pt was found to have question about care. Offer was made to go over findings with patient, but he refuse stating i'll just go to [place] where they know what their are doing. at that time pt was informed that he had the right to second opinion and to contact our medical records for test completed at this visit if [place] [id number]
[2020-06-14 13:41] LABS: Pathologist Review Reviewed
== END 2020-06-13 14:51 | disposition home or self-care (01) ==
PROVIDERS: Emergency Provider Emergency Medicine
DX: R07.9 Chest pain, unspecified (principal); I25.10 Atherosclerotic heart disease of native coronary artery without angina pectoris; I10 Essential (primary) hypertension; E78.5 Hyperlipidemia, unspecified; Z79.82 Long term (current) use of aspirin; Z79.899 Other long term (current) drug therapy; Z85.72 Personal history of non-Hodgkin lymphomas; Z87.891 Personal history of nicotine dependence; Z95.5 Presence of coronary angioplasty implant and graft
CPT/HCPCS: 71045; 80048; 84484; 85025; 93005; 99284; A4216